=== PATIENT | female | born 1945 | race African-American/Black ===

== ENCOUNTER 2017-05-22 12:01 | Observation (INO) ==
[2017-05-22] MEDS ORDERED: Ondansetron 4 MG/2 ML VIAL IVP PRN (14:08)
[2017-05-22] MEDS ORDERED: *HR* Morphine 2 MG/ML SYRINGE IVP PRN (14:08)
[2017-05-22] MEDS ORDERED: Naloxone 0.4 MG/ML INJ IVP PRN (14:08)
[2017-05-22] MEDS ORDERED: *HR* LORazepam 2 MG/ML VIAL IVP PRN ×3 (14:31)
--- NOTE | 2017-05-22 14:45 | Internal Med History&Physical ---
<Charanjit Worrell J - Last Filed: 05/22/17 18:50> Date of Encounter: 05/22/17 Time of Encounter: 14:39 Assessment and Plan (1) Fracture of right hip requiring operative repair Current visit: Yes Status: Acute Rt periprosthetic fracture, s/p fall, alcohol may be a factor in fall. Planning surgical intervention in AM. Manage pain with morphine 2mg IVP Q4hr for pain, consider adding additional medication of pain remains uncontrolled. Qualifiers: Encounter type: initial encounter Fracture type: closed Qualified Code(s) : S72.001A - Fracture of unspecified part of neck of right femur, initial encounter for closed fracture (2) Acute right hip pain Current visit: Yes Status: Acute S/p fall resulting in fracture of prosthetic. pain 2/10 with rest, and 10/10 with ROM and movement. Start Morphine 2mg Q4hr PRN for moderate to severe pain. (3) Alcohol abuse Current visit: Yes Status: Chronic Admits to drinking 0.5 a fifth of Vodka daily. Was drinking morning before event. Ordered blood ETOH, will start CIWA protocol in case of withdrawal, starting B12, thiamine, and folate (4) DVT prophylaxis Current visit: Yes Status: Acute s/p fall resulting in hip fracture. Fell and his head without LOC, will hold SC lovenox until results of CT head. Internal Medicine - H&P: HPI Chief complaint: Fracture of Rt hip s/p fall at home Admitted From: Home Plans for Post Hospital Care: Transfer Inp Rehab Fac History of present illness: Ms. Sparks is a 71 year old female with PMH of Gerd, HTN, and HLD who is a transfer from [facility] with Rt hip pain and fracture of Rt hip prosthesis s/p fall at home. She reports to also hitting her head without LOC, not on any blood thinners. All information obtained from chart review and patient report. She reports that she was coming down the steps and attempted to turn and lost her balance resulting in a fall on her right hip. Hip XR shows non-displaced periprosthetic fracture which was also confirmed via CT. She does admit to severe alcohol abuse drinking 0.5 a fifth of Vodka per day and was drinking this morning. She is being admitted for pain management, monitoring and surgical intervention in the morning. Past Med Surg Social Fam HX - Past Medical History Medical history: GERD, hyperlipidemia, hypertension, other Psychiatric history: anxiety, depression - Past Surgical History Surgical History: hip replacement (B/L) - Social History Smoking Status: Never smoker Smokeless Tobacco Status: No Alcohol use: heavy, recent Drug use: none - Family History Brother Adopted: No Living Status: Still Living Hx Family Cardiac Disorders: Yes Hx Family Respiratory Disorders: No Hx Family Cancer: No Hx Family GI Disorders: No Hx Family Endocrine Disorder: No Hx Family Neuromuscular Disorders: No Hx Family Neurologic Disorders: No Hx Family HEENT Disorders: No Hx Family Autoimmune Disorders: No Internal Medicine - H&P: Meds Allopurinol [Zyloprim 300 MG] 300 mg PO DAILY 09/30/15 [History] Atenolol [Tenormin] 50 mg PO DAILY 09/30/15 [History] Citalopram Hydrobromide [Celexa] 40 mg PO DAILY 09/30/15 [History] Gabapentin [Neurontin] 600 mg PO TID 09/30/15 [History] Magnesium Oxide [Magnesium] 400 mg PO DAILY 09/30/15 [History] Omeprazole [PriLOSEC] 40 mg PO BID 09/30/15 [History] Pravastatin Sodium [Pravachol] 40 mg PO HS 09/30/15 [History] Cholecalciferol (D-3) [Vitamin D] 1,000 unit PO DAILY 05/22/17 [History] Melatonin/Pyridoxine HCl (B6) [Melatonin 5 mg Tablet] 5 mg PO HS PRN 05/22/17 [ History] Mirtazapine [Remeron] 15 mg PO HS 05/22/17 [History] 3 Allergy/AdvReac Type Severity Reaction Status Date / Time No Known Allergies Allergy Verified 04/30/17 20:53 All Systems PM: A 10-system review of systems was performed and is negative for pertinent findings except as documented above in the HPI. - Constitutional Constitutional: no chills, no fever(s), no night sweats - EENT Eyes: no blurry vision, no change in vision, no discharge, no loss of vision, no pain, no photophobia Ears: no ear discharge, no ear pain, no tinnitus Nose, mouth and throat: no dysphagia, no nasal discharge, no neck pain, no sore throat - Cardiovascular Cardiovascular ROS IM: no chest pain, no diaphoresis, no dyspnea, no lightheadedness, no palpitations, no syncope - Respiratory Respiratory: no cough, no dyspnea, no wheezing, no excessive phlegm production - Gastrointestinal Gastrointestinal: no abdominal pain, no diarrhea, no hematemesis, no hematochezia, no melena, no nausea, no vomiting - Genitourinary Genitourinary: no change in urinary stream, no dysuria, no flank pain, no hematuria - Musculoskeletal Musculoskeletal ROS IM: as per HPI, arthralgias, limited range of motion, no numbness, no tingling Additional comments: Hip pain 2/10 with rest 10/10 with activity and/or ROM - Integumentary Integumentary IM: no rash, no unusual bruising - Neurological Neurological ROS: no confusion, no convulsions, no disequilibrium, no dizziness , no focal weakness, no frequent falls, no headache(s), no numbness, no tingling , no tremor(s), no vertigo - Hematologic/Lymphatic Hematologic/Lymphatic: no easy bruising - Constitutional Vitals: Temp Pulse Resp BP Pulse Ox 97.7 F 75 18 174/80 96 05/22/17 13:45 05/22/17 13:45 05/22/17 13:45 05/22/17 13:45 05/22/17 13:45 General appearance: Present: cooperative, mild distress, A&O X 3, answers questions appropriately - Head Head exam: Present: atraumatic, normocephalic - Eye Eye exam: Present: EOMI, PERRL, conjuntiva pink, sclera anicteric Pupils: Present: PERRL - Neck Neck exam general surgery: Present: supple, trachea midline. Absent: lymphadenopathy - Respiratory Respiratory exam: Present: CTAB. Absent: accessory muscle use, rales, rhonchi, wheezes - Cardiovascular Cardiovascular exam: Present: RRR, +S1, +S2. Absent: diastolic murmur, gallop, rubs, systolic murmur - GI/Abdominal GI/Abdominal exam: Present: normal bowel sounds, soft, no peritoneal signs. Absent: distended, tenderness - Extremities Exam Extremities exam: Present: warm, radial pulses palpable and symmetrical. Absent : calf tenderness, cyanotic, pedal edema - Expanded Lower Extremities Exam Hip exam: Present: tenderness. Absent: external rotation, internal rotation ( Rt periprosthetic hip fracture), swelling Upper Leg exam: Present: tenderness. Absent: abrasion, full ROM, swelling Knee exam: Present: tenderness. Absent: abrasion, full ROM, swelling - Neurological Exam Neurological exam: Present: alert, CN II-XII intact, oriented X3, no focal deficits. Absent: pronater drift, facial droop, speech deficit - Skin Skin exam: Present: dry, intact Internal Med - H&P Results - Diagnostic Studies Venous US Status: image reviewed by me Additional comments: Rt periprosthetic hip fracture <Ronel Brumfield - Last Filed: 05/23/17 17:58> Date of Encounter: 05/23/17 Internal Medicine - H&P: HPI History of present illness: Ms. Sparks is a 71 year old female All Systems PM: A 10-system review of systems was performed and is negative for pertinent findings except as documented above in the HPI. - Constitutional Vitals: Temp Pulse Resp BP Pulse Ox 98.2 F 81 18 142/81 95 05/23/17 14:25 05/23/17 14:25 05/23/17 14:25 05/23/17 14:25 05/23/17 14:25 Internal Med - H&P Results - Labs CBC & Chem 7: 05/23/17 04:16 05/23/17 04:16 Labs: Short CBC 05/23/17 Range/Units 04:16 WBC 10.3 (4.3-11.1) K/mcL Hgb 11.3 L D (11.5-15.4) g/dL Hct 34.6 L (35.3-44.9) % Plt Count 209 (140-400) K/mcL Neutrophils # 6.8 (1.6-8.9) K/mcL BMP 05/23/17 04:16 Sodium 136 Potassium 3.6 Chloride 102 Carbon Dioxide 24 BUN 14 Creatinine 1.07 Glucose 98 Calcium 8.4 L - Impressions ITS Impressions Head CT 05/22/17 14:29 IMPRESSION: No acute intracranial abnormality. D/ / César Hernandez MD / César Hernandez MD Interpreting Provider: César Hernandez MD - Attending Attestation I have personally performed a face to face evaluation on this patient and I discussed the assessment and plan with the nurse practitioner. I have reviewed and agree with the documented care plan. History and Exam by me shows: Ms. Sparks is a 71 year old female with PMH of Gerd, HTN, and HLD who is a transfer from [facility] with Rt hip pain and fracture of Rt hip prosthesis s/p fall at home. She reports to also hitting her head without LOC, not on any blood thinners. All information obtained from chart review and patient report. She reports that she was coming down the steps and attempted to turn and lost her balance resulting in a fall on her right hip. Hip XR shows non-displaced periprosthetic fracture which was also confirmed via CT. She does admit to severe alcohol abuse drinking 0.5 a fifth of Vodka per day and was drinking this morning. Gen: A, A, O X3 Chest : Diminished BS b/l, No crackles, no rales Hip: Point tenderness over Rt hip and mild swelling noticed a/p 1. Acute Rt hip prosthetic fx - non displaced Ortho consulted mostly conservative management 2. Chronic alcohol dependence on CIWA protocol
[2017-05-22] MEDS: Vitamin B Complex/Vit C/Vit E 1 EACH TABLET PO SCH (15:10)
[2017-05-22] MEDS: *HR* Morphine 2 MG/ML SYRINGE IVP PRN ×2 (15:10→23:47)
[2017-05-22] MEDS: Folic Acid 1 MG TABLET PO SCH (15:11)
[2017-05-22] MEDS: Thiamine (B-1) 100 MG TABLET PO SCH (15:11)
[2017-05-22] MEDS: 0.9 % Sodium Chloride 1,000 ML IVC SCH (15:11)
[2017-05-22 15:19] LABS: Amylase 47 Units/L (25-125); Ethanol < 10 mg/dL (0-10); Lipase 47 Units/L (8-78); Magnesium 1.1 mg/dL (1.6-2.6)
[2017-05-22 16:18] LABS: Amphetamine Screen,Urine Negative ng/mL (Cutoff=1000); Barbiturate Screen,Urine Negative ng/mL (Cutoff=200); Benzodiazepines Screen,Urine Negative ng/mL (Cutoff=200); Cannabinoid Screen,Urine Negative ng/mL (Cutoff = 50); Cocaine Screen,Urine Negative ng/mL (Cutoff= 300); Opiate Screen,Urine Positive ng/mL (Cutoff=300); Phencyclidine Screen,Urine Negative ng/mL (Cutoff=25)
--- NOTE | 2017-05-22 17:52 | Orthopedic Consult Note ---
Date of Encounter: 05/22/17 Time of Encounter: 17:47 History of Present Illness Chief complaint: Right hip pain HPI: Ms. Sparks is a 71 year old female who sustained an injury to her right hip when she fell on some stairs at her home. Patient states she was walking up stairs turned around and fell. She states that she normally uses a cane but did not have it with her. Patient does have a history of bilateral total hip arthroplasties performed in 1997. She has had no problems with the hips. Unfortunately the patient had x-rays taken and a CT scan performed at [facility] the revealed evidence of a periprosthetic fracture of the right hip. She was transferred to [facility] for definitive management. For complete history and physical data please refer the completed portion of the medical record Examination reveals no leg length inequalities. Pain is identified about the right hip. Distal neurosensory exam is intact. I reviewed x-rays of the right hip. The AP of the pelvis reveals bilateral press-fit total hip arthroplasty. There are no complicating features about the left hip. The right hip reveals a nondisplaced fracture in the peritrochanteric region. This is 50 cm below the greater trochanter and extends over to the region of the lesser trochanter. The prosthesis appears well seated. There is no evidence of dislocation. A CT scan of the hip is also reviewed. This reveals the same findings. There is a stable reduced total hip arthroplasty prosthesis within essence a nondisplaced fracture across the subtrochanteric region of the right hip. This is a somewhat angular fracture. The prosthesis remains well seated. There is some normal distal remodeling. No evidence of periprosthetic loosening. Impression: Periprosthetic fracture right proximal femur Recommendation: This is a stable fracture and does not require surgical intervention. The implant appears to be well fixed evidence of loosening. The fracture is nondisplaced and should heal with the femoral stem acting as an internal fixation device. The patient can begin touchdown weightbearing ambulation with a walker. Agree with DVT prophylaxis. Pain management. micrographics services supervisor for discharge planning. Thank you very much for allowing me to see and care for Mrs. Sparks. Sincerely, Lukas Lopez,DO Past Med Surg Social Fam HX - Past Medical History Medical history: GERD, hyperlipidemia, hypertension, other Psychiatric history: anxiety, depression - Past Surgical History Surgical History: hip replacement (B/L) - Social History Smoking Status: Never smoker Smokeless Tobacco Status: No Alcohol use: heavy, recent Drug use: none - Family History Brother Adopted: No Living Status: Still Living Hx Family Cardiac Disorders: Yes Hx Family Respiratory Disorders: No Hx Family Cancer: No Hx Family GI Disorders: No Hx Family Endocrine Disorder: No Hx Family Neuromuscular Disorders: No Hx Family Neurologic Disorders: No Hx Family HEENT Disorders: No Hx Family Autoimmune Disorders: No Medications and Allergies Allopurinol [Zyloprim 300 MG] 300 mg PO DAILY 09/30/15 [History] Atenolol [Tenormin] 50 mg PO DAILY 09/30/15 [History] Citalopram Hydrobromide [Celexa] 40 mg PO DAILY 09/30/15 [History] Gabapentin [Neurontin] 600 mg PO TID 09/30/15 [History] Magnesium Oxide [Magnesium] 400 mg PO DAILY 09/30/15 [History] Omeprazole [PriLOSEC] 40 mg PO BID 09/30/15 [History] Pravastatin Sodium [Pravachol] 40 mg PO HS 09/30/15 [History] Cholecalciferol (D-3) [Vitamin D] 1,000 unit PO DAILY 05/22/17 [History] Melatonin/Pyridoxine HCl (B6) [Melatonin 5 mg Tablet] 5 mg PO HS PRN 05/22/17 [ History] Mirtazapine [Remeron] 15 mg PO HS 05/22/17 [History] 3 Allergy/AdvReac Type Severity Reaction Status Date / Time No Known Allergies Allergy Verified 04/30/17 20:53 All Systems Reviewed: A 10-system review of systems was performed and is negative for pertinent findings except as documented above in the HPI. Physical Exam - Constitutional Vitals: Temp Pulse Resp BP Pulse Ox 97.7 F 75 18 174/80 96 05/22/17 13:45 05/22/17 13:45 05/22/17 13:45 05/22/17 13:45 05/22/17 13:45 Results - Labs Labs: Abnormal lab results Magnesium 1.1 mg/dL (1.6-2.6) L 05/22/17 14:36 Urine Opiates Screen Positive ng/mL (Xpqhwn=192) H 05/22/17 15:40 All other labs normal. - Diagnostic results Hip AP/Lateral x-ray: image reviewed Hip CT: image reviewed Consult Discharge Plan - Plan Referrals: Adri Downing, KATHRYN [Primary Care Provider] -
[2017-05-22] MEDS ORDERED: PYRIDOXINE HCL PO PRN (17:54)
[2017-05-22] MEDS ORDERED: MELATONIN PO PRN (17:54)
[2017-05-22] MEDS ORDERED: Magnesium Sulfate 2 GM in D5% in Water 100 ML IVPB ONE (20:07)
[2017-05-22] MEDS: Mirtazapine 15 MG TABLET PO SCH (20:41)
[2017-05-22] MEDS: Gabapentin 300 MG CAPSULE PO SCH ×2 (20:41→20:52)
[2017-05-23] MEDS: 0.9 % Sodium Chloride 1,000 ML IVC SCH ×2 (02:22→12:45)
[2017-05-23 05:18] LABS: Basophils # 0.1 K/mcL (0.0-0.2); Basophils % 0.5 %; Eosinophils # 0.2 K/mcL (0.0-0.6); Eosinophils % 1.5 %; Hematocrit 34.6 % (35.3-44.9); Hemoglobin 11.3 g/dL (11.5-15.4); Immature Granulocytes % 0.9 % (0-4); Lymphocytes # 2.5 K/mcL (0.6-4.6); Lymphocytes % 24.2 %; Mean Corpuscular HGB Conc 32.7 g/dL (31.6-35.5); Mean Corpuscular Hemoglobin 34.2 pg (28.0-33.3); Mean Corpuscular Volume 104.8 fL (83.0-100.0); Mean Platelet Volume 10.4 fL (9.4-12.4); Monocytes # 0.7 K/mcL (0.0-1.3); Monocytes % 6.9 %; Neutrophils # 6.8 K/mcL (1.6-8.9); Platelet Count 209 K/mcL (140-400); Red Cell Distribution Width 13.3 % (11.5-14.5)
[2017-05-23 05:40] LABS: BUN/Creatinine Ratio 13 (6-26); Blood Urea Nitrogen 14 mg/dL (7-20); Calcium 8.4 mg/dL (8.6-10.8); Carbon Dioxide 24 mEq/L (19-29); Chloride 102 mEq/L (98-109); Glucose 98 mg/dL (70-99); Osmolality,Calculated 282 (280-300); Potassium 3.6 mEq/L (3.5-4.5); Sodium 136 mEq/L (136-145); eGFR For African Americans > 60 (> 60); eGFR For Non-African Americans 51 (> 60)
[2017-05-23] MEDS: *HR* Enoxaparin 40 MG/0.4 ML SYRINGE SQ SCH (05:51)
[2017-05-23] MEDS ORDERED: *HR* Enoxaparin 40 MG/0.4 ML SYRINGE SQ SCH (06:00)
[2017-05-23] MEDS: *HR* Morphine 2 MG/ML SYRINGE IVP PRN ×2 (06:52→16:52)
[2017-05-23] MEDS: Thiamine (B-1) 100 MG TABLET PO SCH (08:01)
[2017-05-23] MEDS: Gabapentin 300 MG CAPSULE PO SCH ×3 (08:01→20:29)
[2017-05-23] MEDS: Vitamin B Complex/Vit C/Vit E 1 EACH TABLET PO SCH (08:01)
[2017-05-23] MEDS: Cholecalciferol (D-3) 1,000 UNIT TABLET PO SCH (08:01)
[2017-05-23] MEDS: Folic Acid 1 MG TABLET PO SCH (08:02)
[2017-05-23] MEDS: Magnesium Oxide 400 MG TABLET PO SCH (08:02)
[2017-05-23] MEDS: traMADol 50 MG TABLET PO PRN ×2 (10:34→20:29)
--- NOTE | 2017-05-23 16:48 | Internal Med Progress Note ---
Date of Encounter: 05/23/17 Time of Encounter: 10:10 - Assessment and plan (1) Periprosthetic fracture of proximal end of femur Current Visit: Yes Status: Acute Assessment and plan: Patient has been evaluated by orthopedics. Fracture is stable and nonsurgical. Recommend touchdown weight bearing ambulation with a walker. Physical therapy consulted. order worker consulted for discharge planning. Continue current pain management and DVT prophylaxis. (2) Acute right hip pain Current Visit: Yes Status: Acute Assessment and plan: Improved today. We will add oral medications to control pain better. (3) Alcohol abuse Current Visit: Yes Status: Chronic Assessment and plan: Monitoring for withdrawal. No signs of withdrawal at this time. (4) DVT prophylaxis Current Visit: Yes Status: Acute Assessment and plan: With subcutaneous Lovenox - Subjective Interval history: Patient sitting up in chair. Appears comfortable. Pain is well controlled. Denies any new complaints at this time. Has good range of motion at knee and ankle. - Constitutional Vitals: Temp Pulse Resp BP Pulse Ox 98.2 F 81 18 142/81 95 05/23/17 14:25 05/23/17 14:25 05/23/17 14:25 05/23/17 14:25 05/23/17 14:25 General appearance: Present: cooperative, A&O X 3, no acute distress, answers questions appropriately - Neck Neck exam general surgery: Present: supple, trachea midline. Absent: lymphadenopathy - Respiratory Respiratory exam: Present: CTAB. Absent: accessory muscle use, rales, rhonchi, wheezes - Cardiovascular Cardiovascular exam: Present: RRR, +S1, +S2. Absent: diastolic murmur, gallop, rubs, systolic murmur - Extremities Exam Extremities exam: Present: tenderness (Right hip region), warm, radial pulses palpable and symmetrical. Absent: calf tenderness, cyanotic, pedal edema - Neurological Exam Neurological exam: Present: alert, oriented X3, no focal deficits. Absent: facial droop, speech deficit Internal Medicine: Result - Labs CBC & Chem 7: 05/23/17 04:16 05/23/17 04:16 Labs: Short CBC 05/23/17 Range/Units 04:16 WBC 10.3 (4.3-11.1) K/mcL Hgb 11.3 L D (11.5-15.4) g/dL Hct 34.6 L (35.3-44.9) % Plt Count 209 (140-400) K/mcL Neutrophils # 6.8 (1.6-8.9) K/mcL BMP 05/23/17 04:16 Sodium 136 Potassium 3.6 Chloride 102 Carbon Dioxide 24 BUN 14 Creatinine 1.07 Glucose 98 Calcium 8.4 L - Impressions Impressions Head CT 05/22/17 14:29 IMPRESSION: No acute intracranial abnormality. D/ / César Hernandez MD / César Hernandez MD Interpreting Provider: César Hernandez MD - VTE Documentation of Mechanical Device: Intermittent pneumatic compression device Consult Discharge Plan - Plan Referrals: Adri Downing, CHEMICAL PROCESSING EQUIPMENT REPAIRER [Primary Care Provider] -
[2017-05-23] MEDS: Mirtazapine 15 MG TABLET PO SCH (20:29)
[2017-05-24] MEDS: *HR* Morphine 2 MG/ML SYRINGE IVP PRN (01:01)
[2017-05-24] MEDS: *HR* Enoxaparin 40 MG/0.4 ML SYRINGE SQ SCH (06:15)
[2017-05-24] MEDS: Magnesium Oxide 400 MG TABLET PO SCH (07:42)
[2017-05-24] MEDS: Vitamin B Complex/Vit C/Vit E 1 EACH TABLET PO SCH (07:42)
[2017-05-24] MEDS: Thiamine (B-1) 100 MG TABLET PO SCH (07:42)
[2017-05-24] MEDS: Gabapentin 300 MG CAPSULE PO SCH ×3 (07:42→20:43)
[2017-05-24] MEDS: Cholecalciferol (D-3) 1,000 UNIT TABLET PO SCH (07:42)
[2017-05-24] MEDS: Folic Acid 1 MG TABLET PO SCH (07:42)
[2017-05-24] MEDS: traMADol 50 MG TABLET PO PRN (12:50)
--- NOTE | 2017-05-24 16:43 | Internal Med Progress Note ---
Date of Encounter: 05/24/17 Time of Encounter: 16:41 - Assessment and plan (1) Periprosthetic fracture of proximal end of femur Current Visit: Yes Status: Acute Assessment and plan: hx right hip fractre with harware in palce. S/p fall on day of presentation. Right hip x-ray with non-displaced periprosthetic fractur. Evaluated by Ortho who noted fracture is stable and nonsurgical. Recommend touchdown weight bearing ambulation with a walker. PT recommending SNF. Plan to discharge to [place] inpatient rehabilitation when able. Continue current pain management and DVT prophylaxis. (2) Hypertension Current Visit: Yes Status: Acute Assessment and plan: per hx. repeat uncontrolled on home medication regimen. Adding amlodipine. Monitor BP and titrate PRN Qualifiers: Hypertension type: essential hypertension Qualified Code(s): I10 - Essential (primary) hypertension (3) Alcohol abuse Current Visit: Yes Status: Chronic Assessment and plan: drinks most days when shes able to. Last drink morning of presentation. Denies previous history of withdrawal. Cont monitoring for withdrawal. No signs of withdrawal at this time. (4) DVT prophylaxis Current Visit: Yes Status: Acute Assessment and plan: With subcutaneous Lovenox - Subjective Interval history: Seen and examined at bedside, she is sitting up in chair at bedside. Says she feels fine. She actually has no complaints. No evidence of withdrawal, denies chest pain, no shortness of breath. Discussed with RN who reports patient complained of pain however she is not using tramadol. Patient encouraged to use tramadol - Constitutional Vitals: Temp Pulse Resp BP Pulse Ox 97.6 F 70 18 184/84 93 05/24/17 15:34 05/24/17 15:34 05/24/17 15:34 05/24/17 15:34 05/24/17 15:34 General appearance: Present: cooperative, A&O X 3, no acute distress, answers questions appropriately - Head Head exam: Present: atraumatic, normocephalic - Eye Eye exam: Present: PERRL, conjuntiva pink, sclera anicteric Pupils: Present: PERRL - Neck Neck exam general surgery: Present: supple, trachea midline. Absent: lymphadenopathy - Respiratory Respiratory exam: Present: CTAB. Absent: accessory muscle use, rales, rhonchi, wheezes - Cardiovascular Cardiovascular exam: Present: RRR, +S1, +S2. Absent: diastolic murmur, gallop, rubs, systolic murmur - GI/Abdominal GI/Abdominal exam: Present: normal bowel sounds, soft, no peritoneal signs. Absent: distended, tenderness - Extremities Exam Extremities exam: Present: warm, radial pulses palpable and symmetrical. Absent : calf tenderness, cyanotic, pedal edema - Neurological Exam Neurological exam: Present: CN II-XII intact, oriented X3, no focal deficits. Absent: pronater drift, facial droop, speech deficit - Skin Skin exam: Present: dry, intact Internal Medicine: Result - Labs CBC & Chem 7: 05/23/17 04:16 05/23/17 04:16 - VTE Documentation of Mechanical Device: Intermittent pneumatic compression device Consult Discharge Plan - Plan Referrals: Adri Downing, QUILTING MACHINE OPERATOR [Primary Care Provider] -
[2017-05-24] MEDS ORDERED: Ipratropium/Albuterol Neb 3 ML IH ONE (17:46)
[2017-05-24] MEDS: amLODIPine 5 MG TABLET PO SCH (18:19)
[2017-05-24] MEDS: Mirtazapine 15 MG TABLET PO SCH (20:43)
[2017-05-25 06:13] LABS: Hematocrit 33.7 % (35.3-44.9); Hemoglobin 10.9 g/dL (11.5-15.4); Mean Corpuscular HGB Conc 32.3 g/dL (31.6-35.5); Mean Corpuscular Volume 108.4 fL (83.0-100.0); Mean Platelet Volume 10.4 fL (9.4-12.4); Platelet Count 174 K/mcL (140-400); Red Blood Count 3.11 M/mcL (3.82-4.97); Red Cell Distribution Width 13.5 % (11.5-14.5)
[2017-05-25] MEDS: *HR* Enoxaparin 40 MG/0.4 ML SYRINGE SQ SCH (06:17)
[2017-05-25 06:25] LABS: Alanine Aminotransferase 29 Units/L (0-55); Albumin 2.7 g/dL (3.5-5.0); Albumin/Globulin Ratio 0.8 (1.1-2.2); Alkaline Phosphatase 77 Units/L (38-126); Aspartate Amino Transferase 22 Units/L (5-34); BUN/Creatinine Ratio 13 (6-26); Bilirubin,Total 0.5 mg/dL (0.2-1.2); Blood Urea Nitrogen 12 mg/dL (7-20); Calcium 8.4 mg/dL (8.6-10.8); Carbon Dioxide 24 mEq/L (19-29); Chloride 106 mEq/L (98-109); Globulin 3.5 g/dL (2.4-3.5); Glucose 134 mg/dL (70-99); Osmolality,Calculated 286 (280-300); Potassium 3.5 mEq/L (3.5-4.5); Sodium 137 mEq/L (136-145); Total Protein 6.2 g/dL (6.0-8.3); eGFR For African Americans > 60 (> 60); eGFR For Non-African Americans > 60 (> 60)
[2017-05-25] MEDS: traMADol 50 MG TABLET PO PRN ×2 (09:54→14:48)
[2017-05-25] MEDS: Thiamine (B-1) 100 MG TABLET PO SCH (09:54)
[2017-05-25] MEDS: Vitamin B Complex/Vit C/Vit E 1 EACH TABLET PO SCH (09:55)
[2017-05-25] MEDS: Folic Acid 1 MG TABLET PO SCH (09:55)
[2017-05-25] MEDS: amLODIPine 5 MG TABLET PO SCH (09:55)
[2017-05-25] MEDS: Cholecalciferol (D-3) 1,000 UNIT TABLET PO SCH (09:55)
[2017-05-25] MEDS: Magnesium Oxide 400 MG TABLET PO SCH (09:55)
[2017-05-25] MEDS: Gabapentin 300 MG CAPSULE PO SCH ×3 (09:55→20:36)
--- NOTE | 2017-05-25 17:05 | Internal Med Progress Note ---
Date of Encounter: 05/25/17 Time of Encounter: 17:03 - Assessment and plan (1) Periprosthetic fracture of proximal end of femur Current Visit: Yes Status: Acute Assessment and plan: hx right hip fractre with hardware in place. S/p fall on day of presentation. Right hip x-ray with non-displaced periprosthetic fractur. Evaluated by Ortho who noted fracture is stable and nonsurgical. Recommend touchdown weight bearing ambulation with a walker. PT recommending SNF. Plan to discharge to [place] inpatient rehabilitation when able. Continue current pain management and DVT prophylaxis. (2) Hypertension Current Visit: Yes Status: Acute Assessment and plan: per hx. repeat uncontrolled on home medication regimen. Adding amlodipine. Monitor BP and titrate PRN. BP improved on 05/25/17 Qualifiers: Hypertension type: essential hypertension Qualified Code(s): I10 - Essential (primary) hypertension (3) Alcohol abuse Current Visit: Yes Status: Chronic Assessment and plan: drinks most days when shes able to. Last drink morning of presentation. Denies previous history of withdrawal. Cont monitoring for withdrawal. No signs of withdrawal at this time. (4) DVT prophylaxis Current Visit: Yes Status: Acute Assessment and plan: With subcutaneous Lovenox - Subjective Interval history: Seen and examined at bedside, says she feels fine. Has some pain in right hip with walking and after PT, otherwise she has no complaints. - Constitutional Vitals: Temp Pulse Resp BP Pulse Ox 98.1 F 77 18 124/77 93 05/25/17 15:16 05/25/17 15:16 05/25/17 15:16 05/25/17 15:16 05/25/17 15:16 General appearance: Present: cooperative, A&O X 3, no acute distress, answers questions appropriately - Head Head exam: Present: atraumatic, normocephalic - Eye Eye exam: Present: PERRL, conjuntiva pink, sclera anicteric Pupils: Present: PERRL - Neck Neck exam general surgery: Present: supple, trachea midline. Absent: lymphadenopathy - Respiratory Respiratory exam: Present: CTAB. Absent: accessory muscle use, rales, rhonchi, wheezes - Cardiovascular Cardiovascular exam: Present: RRR, +S1, +S2. Absent: diastolic murmur, gallop, rubs, systolic murmur - GI/Abdominal GI/Abdominal exam: Present: normal bowel sounds, soft, no peritoneal signs. Absent: distended, tenderness - Extremities Exam Extremities exam: Present: warm, radial pulses palpable and symmetrical. Absent : calf tenderness, cyanotic, pedal edema - Neurological Exam Neurological exam: Present: CN II-XII intact, oriented X3, no focal deficits. Absent: pronater drift, facial droop, speech deficit - Skin Skin exam: Present: dry, intact Internal Medicine: Result - Labs CBC & Chem 7: 05/25/17 05:15 05/25/17 05:15 Labs: Short CBC 05/25/17 Range/Units 05:15 WBC 13.6 H (4.3-11.1) K/mcL Hgb 10.9 L (11.5-15.4) g/dL Hct 33.7 L (35.3-44.9) % Plt Count 174 (140-400) K/mcL BMP 05/25/17 05:15 Sodium 137 Potassium 3.5 Chloride 106 Carbon Dioxide 24 BUN 12 Creatinine 0.91 Glucose 134 H Calcium 8.4 L Liver Function 05/25/17 Range/Units 05:15 Total Bilirubin 0.5 (0.2-1.2) mg/dL AST 22 (5-34) Units/L ALT 29 (0-55) Units/L Alkaline Phosphatase 77 (38-126) Units/L Albumin 2.7 L (3.5-5.0) g/dL - VTE Documentation of Mechanical Device: Intermittent pneumatic compression device Consult Discharge Plan - Plan Referrals: Adri Downing, CAREER COUNSELOR [Primary Care Provider] -
[2017-05-25] MEDS: Mirtazapine 15 MG TABLET PO SCH (20:37)
[2017-05-25] MEDS: *HR* Morphine 2 MG/ML SYRINGE IVP PRN (20:37)
[2017-05-26] MEDS: *HR* Morphine 2 MG/ML SYRINGE IVP PRN (03:40)
[2017-05-26 05:07] LABS: Hematocrit 32.1 % (35.3-44.9); Hemoglobin 10.6 g/dL (11.5-15.4); Mean Corpuscular Hemoglobin 35.6 pg (28.0-33.3); Mean Corpuscular Volume 107.7 fL (83.0-100.0); Mean Platelet Volume 10.4 fL (9.4-12.4); Platelet Count 179 K/mcL (140-400); Red Blood Count 2.98 M/mcL (3.82-4.97); Red Cell Distribution Width 13.7 % (11.5-14.5)
[2017-05-26 05:23] LABS: Alanine Aminotransferase 26 Units/L (0-55); Albumin 2.7 g/dL (3.5-5.0); Albumin/Globulin Ratio 0.8 (1.1-2.2); Alkaline Phosphatase 76 Units/L (38-126); Aspartate Amino Transferase 19 Units/L (5-34); BUN/Creatinine Ratio 11 (6-26); Bilirubin,Total 0.4 mg/dL (0.2-1.2); Blood Urea Nitrogen 9 mg/dL (7-20); Calcium 8.8 mg/dL (8.6-10.8); Carbon Dioxide 20 mEq/L (19-29); Chloride 108 mEq/L (98-109); Globulin 3.5 g/dL (2.4-3.5); Glucose 127 mg/dL (70-99); Osmolality,Calculated 284 (280-300); Potassium 3.6 mEq/L (3.5-4.5); Sodium 137 mEq/L (136-145); Total Protein 6.2 g/dL (6.0-8.3); eGFR For African Americans > 60 (> 60); eGFR For Non-African Americans > 60 (> 60)
[2017-05-26] MEDS: *HR* Enoxaparin 40 MG/0.4 ML SYRINGE SQ SCH (06:19)
[2017-05-26] MEDS: Gabapentin 300 MG CAPSULE PO SCH ×2 (08:27→15:35)
[2017-05-26] MEDS: Cholecalciferol (D-3) 1,000 UNIT TABLET PO SCH (08:27)
[2017-05-26] MEDS: Vitamin B Complex/Vit C/Vit E 1 EACH TABLET PO SCH (08:27)
[2017-05-26] MEDS: Magnesium Oxide 400 MG TABLET PO SCH (08:27)
[2017-05-26] MEDS: Thiamine (B-1) 100 MG TABLET PO SCH (08:27)
[2017-05-26] MEDS: amLODIPine 5 MG TABLET PO SCH (08:28)
[2017-05-26] MEDS: Folic Acid 1 MG TABLET PO SCH (08:28)
--- NOTE | 2017-05-26 12:26 | Discharge Summary ---
Date of Encounter: 05/26/17 Time of Encounter: 13:04 - Discharge Diagnosis (1) Periprosthetic fracture of proximal end of femur Priority: Primary Status: Acute Comments: 71 y/o female with PMH HTN and alcohol abuse who presented to [facility], [place] on 05/22/2017 with complaints of right hip pain after falling at home. She was found to have non-displaced periprosthetic fracture; she was evautaed by Ortho who felt non- surgical. She was evaluated by PT/OT who recommended SNF. She was discharged to [facility] inpatient [facility] for continued PT/OT 1. Bridget-prostatic fracture proximal end of femur: hx right hip fractre with hardware in place. S/p fall on day of presentation. Right hip x-ray with non- displaced periprosthetic fracture. Evaluated by Ortho who noted fracture is stable and nonsurgical. Evaluated by PT/OT who recommended SNF. Plan to discharge to [facility] inpatient rehabilitation once insurance approval obtained. Pain control with PRN OXyIR. Will need to follow-up with Ortho outpatient. 2. HTN: per hx. BP uncontrolled on home medication regimen; improved with amlodipine. BP can be monitored at inpatient rehabilitation. 3. COPD exacerbation: With diffuse wheezing on exam. No cough, no sputum production, afebrile, no elevated WBC. No indication for ATB. Steroid burst for 5 days, DuoNeb's. 4. EtOH abuse: drinks most days when shes able to. Last drink morning of presentation. Denies previous history of withdrawal. monitored with [facility] while inpatient; did not trigger scale and no signs or symptoms of alcohol withdrawal. Cessation advised. (2) Hypertension Priority: Primary Status: Acute Qualifiers: Hypertension type: essential hypertension Qualified Code(s): I10 - Essential (primary) hypertension (3) Alcohol abuse Priority: Primary Status: Acute - Discharge Medications Prescriptions: amLODIPine [Norvasc] 10 mg PO DAILY #30 tablet Oxycodone HCl [Oxaydo] 5 mg PO Q8H PRN #24 tablet.orl PRN Reason: Pain Home Medications: Allopurinol [Zyloprim 300 MG] 300 mg PO DAILY 09/30/15 [History] Atenolol [Tenormin] 50 mg PO DAILY 09/30/15 [History] Citalopram Hydrobromide [Celexa] 40 mg PO DAILY 09/30/15 [History] Gabapentin [Neurontin] 600 mg PO TID 09/30/15 [History] Magnesium Oxide [Magnesium] 400 mg PO DAILY 09/30/15 [History] Omeprazole [PriLOSEC] 40 mg PO BID 09/30/15 [History] Pravastatin Sodium [Pravachol] 40 mg PO HS 09/30/15 [History] Cholecalciferol (D-3) [Vitamin D] 1,000 unit PO DAILY 05/22/17 [History] Melatonin/Pyridoxine HCl (B6) [Melatonin 5 mg Tablet] 5 mg PO HS PRN 05/22/17 [ History] Mirtazapine [Remeron] 15 mg PO HS 05/22/17 [History] Ipratropium/Albuterol Neb [Duoneb] 3 ml IH [id number] inhsol 05/26/17 [Rx] Oxycodone HCl [Oxaydo] 5 mg PO Q8H PRN #24 tablet.orl 05/26/17 [Rx] amLODIPine [Norvasc] 10 mg PO DAILY #30 tablet 05/26/17 [Rx] predniSONE [PredniSONE] 40 mg PO DAILY 5 Days tablet 05/26/17 [Rx] Allergies/Adverse Reactions: 3 Allergy/AdvReac Type Severity Reaction Status Date / Time No Known Allergies Allergy Verified 04/30/17 20:53 Date of admission: 05/22/17 13:20 Primary care physician: Adri Downing CNP Consults: 05/22/17 14:31 Consult to Product Support Technician [CONS] Routine Reason for SW Consult: New Rt hip fracture, h/o alcohol abuse reports drinking 0.5 a fifth of Vodka daily. Will need Rehab center s/p hip sx. 05/23/17 07:43 Consult to Occupational Therapy [CONS] Routine Comment: Evaluate, develop and implement POC Reason for Consult: Right femure fracture Consult to Physical Therapy [CONS] Routine Comment: Evaluate, develop and implement POC Reason for Consult: Right femure fracture Discharging clinician: Lesli Helm Anticipated date of discharge: 05/26/17 - Patient Status Disposition: Transfer Inpatient Rehab Fac Condition: Good Functional capacity at discharge: uses cane/walker Overall status at discharge: patient is progressing back to baseline - Discharge Instructions Follow Up With: Downing,Adri L, [employer] [Primary Care Provider] - - Diet and Activity Activity: as per physical therapy Diet: advance to your usual diet Interval History: Seen and examined at bedside. She is complaining of wheezing. No cough, no sputum production. No fevers or chills. Says tramadol is not really helping with her right hip pain. Plan to DC to inpatient rehabilitation once insurance approval obtained Hospital course: See assessment and plan for hospital course - Time Spent with Patient Total time spent providing and/or coordinating discharge services: Greater than 30 minutes (42 minutes) - Constitutional Vitals: Temp Pulse Resp BP Pulse Ox 98.5 F 76 18 134/67 95 05/26/17 11:00 05/26/17 11:00 05/26/17 11:00 05/26/17 11:00 05/26/17 11:00 General appearance: Present: cooperative, A&O X 3, no acute distress, answers questions appropriately - Head Head exam: Present: atraumatic, normocephalic - Eye Eye exam: Present: PERRL, conjuntiva pink, sclera anicteric Pupils: Present: PERRL - Neck Neck exam general surgery: Present: supple, trachea midline. Absent: lymphadenopathy - Respiratory Respiratory exam: Present: wheezes. Absent: accessory muscle use, rales, rhonchi - Cardiovascular Cardiovascular exam: Present: RRR, +S1, +S2. Absent: diastolic murmur, gallop, rubs, systolic murmur - GI/Abdominal GI/Abdominal exam: Present: normal bowel sounds, soft, no peritoneal signs. Absent: distended, tenderness - Extremities Exam Extremities exam: Present: warm, radial pulses palpable and symmetrical. Absent : calf tenderness, cyanotic, pedal edema - Neurological Exam Neurological exam: Present: CN II-XII intact, oriented X3, no focal deficits. Absent: pronater drift, facial droop, speech deficit - Skin Skin exam: Present: dry, intact - VTE Documentation of Mechanical Device: Intermittent pneumatic compression device
[2017-05-26] MEDS ORDERED: predniSONE 20 MG TABLET PO SCH (12:45)
[2017-05-26] MEDS: *HR* OxyCODONE Immed Rel 5 MG TABLET PO PRN ×2 (12:57→17:56)
[2017-05-26 14:54] VITALS: BP 128/74
[2017-05-26] MEDS: Ipratropium/Albuterol Neb 3 ML IH SCH ×3 (15:53→19:27)
[2017-05-26] MEDS ORDERED: FLUARIX QUAD 2017-18 36MOS UP/PF 0.5 ML SYRINGE IM ONE (18:21)
== END 2017-05-26 18:25 ==
LOC: 3NENU
PROVIDERS: ADMIT Nurse Practitioner; ATTEND Internal Medicine

== ENCOUNTER 2020-03-05 01:16 | Observation (INO) ==
[2020-03-05] MEDS ORDERED: Naloxone 0.4 MG/ML INJ IVP PRN (02:23)
[2020-03-05] MEDS ORDERED: Acetaminophen 325 MG TABLET PO PRN ×2 (02:23→17:58)
[2020-03-05] MEDS ORDERED: 0.9 % Sodium Chloride 1,000 ML IVC SCH ×2 (02:30→14:30)
[2020-03-05] MEDS ORDERED: *HR* LORazepam 2 MG/ML VIAL IVP PRN ×3 (05:04)
[2020-03-05 05:46] LABS: Basophils % 0.1 %; Hematocrit 38.8 % (35.3-44.9); Hemoglobin 12.7 g/dL (11.5-15.4); Immature Granulocytes % 0.4 % (0-4); Lymphocytes # 0.9 K/mcL (0.6-4.6); Lymphocytes % 7.6 %; Mean Corpuscular HGB Conc 32.7 g/dL (31.6-35.5); Mean Corpuscular Hemoglobin 34.1 pg (28.0-33.3); Mean Corpuscular Volume 104.3 fL (83.0-100.0); Mean Platelet Volume 9.9 fL (9.4-12.4); Monocytes # 0.8 K/mcL (0.0-1.3); Monocytes % 7.1 %; Neutrophils # 9.4 K/mcL (1.6-8.9); Platelet Count 190 K/mcL (140-400); Red Blood Count 3.72 M/mcL (3.82-4.97); Red Cell Distribution Width 13.1 % (11.5-14.5); Segmented Neutrophils % 84.8 %; White Blood Count 11.1 K/mcL (4.3-11.1)
[2020-03-05] MEDS: *HR* Heparin 5,000 UNIT/ML VIAL SQ SCH ×3 (05:47→20:12)
[2020-03-05] MEDS: MetroNIDAZOLE 500 MG/100 ML 500 MG/100 ML BAG IVPB SCH ×3 (06:50→20:13)
[2020-03-05 07:20] LABS: Albumin 3.6 g/dL (3.5-5.7); Albumin/Globulin Ratio 1.2 (1.1-2.2); Bilirubin,Total 0.8 mg/dL (0.3-1.0); Calcium 8.7 mg/dL (8.6-10.3); Globulin 3.1 g/dL (2.4-3.5); Potassium 3.5 mEq/L (3.5-5.1); Total Protein 6.7 g/dL (6.4-8.9)
[2020-03-05] MEDS: Thiamine (B-1) 100 MG, Folic Acid 1 MG, MVI, adult with vitamin K 10 ML in 0.9 % Sodi... IVPB SCH (17:21)
[2020-03-05] MEDS: allopurinoL 300 MG TABLET PO SCH (18:24)
[2020-03-05] MEDS: *HR* HYDROcodone/Acet 7.5/325 mg TABLET PO PRN (18:25)
[2020-03-05] MEDS: Gabapentin 300 MG CAPSULE PO SCH (20:09)
[2020-03-05] MEDS: traZODone 50 MG TABLET PO PRN (23:48)
[2020-03-06 04:16] LABS: Basophils % 0.2 %; Hematocrit 36.8 % (35.3-44.9); Hemoglobin 11.7 g/dL (11.5-15.4); Immature Granulocytes % 0.8 % (0-4); Lymphocytes # 1.1 K/mcL (0.6-4.6); Lymphocytes % 12.1 %; Mean Corpuscular HGB Conc 31.8 g/dL (31.6-35.5); Mean Corpuscular Volume 103.7 fL (83.0-100.0); Mean Platelet Volume 9.8 fL (9.4-12.4); Monocytes # 0.6 K/mcL (0.0-1.3); Monocytes % 6.8 %; Neutrophils # 7.2 K/mcL (1.6-8.9); Platelet Count 178 K/mcL (140-400); Red Blood Count 3.55 M/mcL (3.82-4.97); Red Cell Distribution Width 13.1 % (11.5-14.5); Segmented Neutrophils % 80.1 %; White Blood Count 8.9 K/mcL (4.3-11.1)
[2020-03-06 04:34] LABS: BUN/Creatinine Ratio 11 (6-26); Blood Urea Nitrogen 11 mg/dL (8-23); Calcium 7.8 mg/dL (8.6-10.3); Carbon Dioxide 24 mEq/L (23-29); Chloride 109 mEq/L (98-107); Glucose 86 mg/dL (70-105); Osmolality,Calculated 289 (280-300); Potassium 3.2 mEq/L (3.5-5.1); Sodium 140 mEq/L (136-145); eGFR For African Americans > 60 (> 60); eGFR For Non-African Americans 56 (> 60)
[2020-03-06] MEDS: *HR* HYDROcodone/Acet 7.5/325 mg TABLET PO PRN ×2 (04:42→16:01)
[2020-03-06] MEDS: *HR* Heparin 5,000 UNIT/ML VIAL SQ SCH ×3 (05:29→21:11)
[2020-03-06] MEDS: MetroNIDAZOLE 500 MG/100 ML 500 MG/100 ML BAG IVPB SCH ×3 (05:30→21:20)
[2020-03-06] MEDS: allopurinoL 300 MG TABLET PO SCH (08:37)
[2020-03-06] MEDS: Metoprolol XL (24 HR) Succ 50 MG TAB.ER.24H PO SCH (08:37)
[2020-03-06] MEDS: Gabapentin 300 MG CAPSULE PO SCH ×3 (08:37→21:11)
[2020-03-06] MEDS: Thiamine (B-1) 100 MG, Folic Acid 1 MG, MVI, adult with vitamin K 10 ML in 0.9 % Sodi... IVPB SCH (09:54)
[2020-03-06] MEDS ORDERED: Albuterol Neb 1.25 MG/3 ML VIAL IH ONE (21:49)
[2020-03-06] MEDS: traZODone 50 MG TABLET PO PRN (21:56)
[2020-03-07] MEDS: *HR* HYDROcodone/Acet 7.5/325 mg TABLET PO PRN ×2 (04:46→14:18)
[2020-03-07] MEDS: MetroNIDAZOLE 500 MG/100 ML 500 MG/100 ML BAG IVPB SCH (05:59)
[2020-03-07] MEDS: *HR* Heparin 5,000 UNIT/ML VIAL SQ SCH ×2 (06:00→12:19)
[2020-03-07 07:39] LABS: BUN/Creatinine Ratio 10 (6-26); Blood Urea Nitrogen 9 mg/dL (8-23); Calcium 8.6 mg/dL (8.6-10.3); Carbon Dioxide 24 mEq/L (23-29); Chloride 113 mEq/L (98-107); Glucose 105 mg/dL (70-105); Magnesium 1.4 mg/dL (1.6-2.6); Osmolality,Calculated 291 (280-300); Potassium 3.4 mEq/L (3.5-5.1); Sodium 141 mEq/L (136-145); eGFR For African Americans > 60 (> 60); eGFR For Non-African Americans > 60 (> 60)
[2020-03-07] MEDS: Gabapentin 300 MG CAPSULE PO SCH ×2 (09:07→15:27)
[2020-03-07] MEDS: allopurinoL 300 MG TABLET PO SCH (09:08)
[2020-03-07] MEDS: Metoprolol XL (24 HR) Succ 50 MG TAB.ER.24H PO SCH (09:08)
[2020-03-07] MEDS ORDERED: Ipratropium/Albuterol Neb 3 ML IH PRN (09:45)
[2020-03-07] MEDS: Thiamine (B-1) 100 MG, Folic Acid 1 MG, MVI, adult with vitamin K 10 ML in 0.9 % Sodi... IVPB SCH (12:19)
[2020-03-07] MEDS ORDERED: metroNIDAZOLE 500 MG TABLET PO SCH (14:00)
[2020-03-07 15:15] VITALS: BP 144/82
[2020-03-08] MEDS ORDERED: Thiamine (B-1) 100 MG TABLET PO SCH (09:00)
[2020-03-08] MEDS ORDERED: Folic Acid 1 MG TABLET PO SCH (09:00)
[2020-03-08] MEDS ORDERED: Multivit/Ca/Min/Fe/FA 1 TAB TABLET PO SCH (09:00)
== END 2020-03-07 16:58 | disposition home or self-care (01) ==
LOC: 3BNU → SUATTDRO 01:16
PROVIDERS: ADMIT Internal Medicine; ATTEND Internal Medicine

== ENCOUNTER 2020-03-12 18:13 | Observation (INO) ==
[2020-03-12] MEDS ORDERED: Naloxone 0.4 MG/ML INJ IVP PRN (20:57)
[2020-03-12] MEDS ORDERED: Ondansetron 4 MG/2 ML VIAL IVP PRN (20:57)
[2020-03-12] MEDS ORDERED: 0.9 % Sodium Chloride 1,000 ML IVC SCH (21:00)
[2020-03-12] MEDS: *HR* Heparin 5,000 UNIT/ML VIAL SQ SCH (23:04)
[2020-03-12 23:24] LABS: BUN/Creatinine Ratio 8 (6-26); Blood Urea Nitrogen 7 mg/dL (8-23); Calcium 8.8 mg/dL (8.6-10.3); Carbon Dioxide 24 mEq/L (23-29); Chloride 109 mEq/L (98-107); Glucose 92 mg/dL (70-105); Osmolality,Calculated 290 (280-300); Potassium 3.4 mEq/L (3.5-5.1); Sodium 141 mEq/L (136-145); eGFR For African Americans > 60 (> 60); eGFR For Non-African Americans > 60 (> 60)
[2020-03-13] MEDS: Piperacillin/Tazobactam 3.375 GM in 0.9 % Sodium Chloride Mini Bag 100 ML IVPB SCH ×3 (05:16→20:13)
[2020-03-13] MEDS: *HR* Heparin 5,000 UNIT/ML VIAL SQ SCH ×3 (05:17→20:14)
[2020-03-13 05:30] LABS: Basophils # 0.1 K/mcL (0.0-0.2); Basophils % 0.5 %; Eosinophils % 0.1 %; Hematocrit 34.8 % (35.3-44.9); Hemoglobin 11.2 g/dL (11.5-15.4); Immature Granulocytes % 1.7 % (0-4); Lymphocytes # 1.5 K/mcL (0.6-4.6); Lymphocytes % 15.2 %; Mean Corpuscular HGB Conc 32.2 g/dL (31.6-35.5); Mean Corpuscular Hemoglobin 33.2 pg (28.0-33.3); Mean Corpuscular Volume 103.3 fL (83.0-100.0); Monocytes # 0.8 K/mcL (0.0-1.3); Neutrophils # 7.2 K/mcL (1.6-8.9); Platelet Count 321 K/mcL (140-400); Red Blood Count 3.37 M/mcL (3.82-4.97); Red Cell Distribution Width 14.3 % (11.5-14.5); Segmented Neutrophils % 74.5 %; White Blood Count 9.6 K/mcL (4.3-11.1)
[2020-03-13 05:50] LABS: Alanine Aminotransferase 16 Units/L (7-52); Albumin 3.3 g/dL (3.5-5.7); Albumin/Globulin Ratio 1.3 (1.1-2.2); Alkaline Phosphatase 68 Units/L (34-104); Aspartate Amino Transferase 17 Units/L (13-39); BUN/Creatinine Ratio 9 (6-26); Bilirubin,Total 0.6 mg/dL (0.3-1.0); Blood Urea Nitrogen 7 mg/dL (8-23); Calcium 8.2 mg/dL (8.6-10.3); Carbon Dioxide 24 mEq/L (23-29); Chloride 110 mEq/L (98-107); Globulin 2.6 g/dL (2.4-3.5); Glucose 90 mg/dL (70-105); Osmolality,Calculated 290 (280-300); Potassium 3.2 mEq/L (3.5-5.1); Sodium 141 mEq/L (136-145); Total Protein 5.9 g/dL (6.4-8.9); eGFR For African Americans > 60 (> 60); eGFR For Non-African Americans > 60 (> 60)
[2020-03-13 06:17] LABS: Bilirubin,Urine Negative (Negative); Blood,Urine Negative (Negative); Clarity,Urine Clear (Clear); Color,Urine Yellow (Yellow); Glucose,Urine (UA) Normal (Normal); Ketones,Urine Negative (Negative); Leukocyte Esterase,Urine Trace (Negative); Nitrite,Urine Negative (Negative); PH,Urine 6.5 pH Units (5.0-8.0); Protein,Urine 30 mg/dL (Neg-Trace); Specific Gravity,Urine > 1.030 (1.010-1.025); Squamous Epithelial Cell,Urine Few per hpf (None-Few); Urobilinogen,Urine Normal (Normal)
[2020-03-13] MEDS: 0.9 % Sodium Chloride w KCl 40 MEQ/1,000 ML MLS IVC SCH ×2 (10:25→20:21)
[2020-03-13] MEDS: Metoprolol XL (24 HR) Succ 50 MG TAB.ER.24H PO SCH (10:27)
[2020-03-13] MEDS: Gabapentin 300 MG CAPSULE PO SCH ×3 (10:27→20:13)
[2020-03-14 03:05] LABS: Basophils % 0.4 %; Eosinophils % 0.1 %; Hematocrit 33.8 % (35.3-44.9); Hemoglobin 10.7 g/dL (11.5-15.4); Immature Granulocytes % 1.8 % (0-4); Lymphocytes % 25.5 %; Mean Corpuscular HGB Conc 31.7 g/dL (31.6-35.5); Mean Corpuscular Hemoglobin 33.3 pg (28.0-33.3); Mean Corpuscular Volume 105.3 fL (83.0-100.0); Mean Platelet Volume 9.8 fL (9.4-12.4); Monocytes # 0.7 K/mcL (0.0-1.3); Monocytes % 8.5 %; Neutrophils # 5.1 K/mcL (1.6-8.9); Platelet Count 304 K/mcL (140-400); Red Blood Count 3.21 M/mcL (3.82-4.97); Red Cell Distribution Width 14.5 % (11.5-14.5); Segmented Neutrophils % 63.7 %
[2020-03-14 03:21] LABS: BUN/Creatinine Ratio 10 (6-26); Blood Urea Nitrogen 8 mg/dL (8-23); Calcium 8.3 mg/dL (8.6-10.3); Carbon Dioxide 22 mEq/L (23-29); Chloride 115 mEq/L (98-107); Glucose 79 mg/dL (70-105); Magnesium 1.4 mg/dL (1.6-2.6); Osmolality,Calculated 291 (280-300); Potassium 3.9 mEq/L (3.5-5.1); Sodium 142 mEq/L (136-145); eGFR For African Americans > 60 (> 60); eGFR For Non-African Americans > 60 (> 60)
[2020-03-14] MEDS: Piperacillin/Tazobactam 3.375 GM in 0.9 % Sodium Chloride Mini Bag 100 ML IVPB SCH ×3 (03:41→18:49)
[2020-03-14] MEDS: *HR* Heparin 5,000 UNIT/ML VIAL SQ SCH ×3 (06:16→21:46)
[2020-03-14] MEDS: 0.9 % Sodium Chloride w KCl 40 MEQ/1,000 ML MLS IVC SCH (07:17)
[2020-03-14] MEDS: Gabapentin 300 MG CAPSULE PO SCH ×3 (08:47→21:45)
[2020-03-14] MEDS: Metoprolol XL (24 HR) Succ 50 MG TAB.ER.24H PO SCH (08:47)
[2020-03-14] MEDS ORDERED: Melatonin 3 MG TABLET PO ONE (22:28)
[2020-03-15] MEDS: Piperacillin/Tazobactam 3.375 GM in 0.9 % Sodium Chloride Mini Bag 100 ML IVPB SCH (02:54)
[2020-03-15] MEDS: *HR* Heparin 5,000 UNIT/ML VIAL SQ SCH (05:28)
[2020-03-15 08:03] VITALS: BP 124/74
[2020-03-15] MEDS: Gabapentin 300 MG CAPSULE PO SCH (09:50)
[2020-03-15] MEDS: Metoprolol XL (24 HR) Succ 50 MG TAB.ER.24H PO SCH (09:50)
[2020-03-15 10:13] LABS: Basophils % 0.4 %; Eosinophils % 0.1 %; Hematocrit 36.8 % (35.3-44.9); Hemoglobin 11.3 g/dL (11.5-15.4); Immature Granulocytes % 0.9 % (0-4); Lymphocytes # 2.1 K/mcL (0.6-4.6); Lymphocytes % 26.9 %; Mean Corpuscular HGB Conc 30.7 g/dL (31.6-35.5); Mean Corpuscular Hemoglobin 32.3 pg (28.0-33.3); Mean Corpuscular Volume 105.1 fL (83.0-100.0); Mean Platelet Volume 9.9 fL (9.4-12.4); Monocytes # 0.4 K/mcL (0.0-1.3); Monocytes % 5.5 %; Neutrophils # 5.2 K/mcL (1.6-8.9); Platelet Count 355 K/mcL (140-400); Red Cell Distribution Width 14.6 % (11.5-14.5); Segmented Neutrophils % 66.2 %; White Blood Count 7.8 K/mcL (4.3-11.1)
[2020-03-15 10:25] LABS: BUN/Creatinine Ratio 7 (6-26); Blood Urea Nitrogen 6 mg/dL (8-23); Calcium 8.8 mg/dL (8.6-10.3); Carbon Dioxide 22 mEq/L (23-29); Chloride 113 mEq/L (98-107); Glucose 136 mg/dL (70-105); Osmolality,Calculated 290 (280-300); Potassium 4.2 mEq/L (3.5-5.1); Sodium 140 mEq/L (136-145); eGFR For African Americans > 60 (> 60); eGFR For Non-African Americans > 60 (> 60)
== END 2020-03-15 11:49 | disposition home or self-care (01) | DRG 392 ==
LOC: 3ANU → SUATTDRO 20:04
PROVIDERS: ADMIT Internal Medicine; ATTEND Internal Medicine

== ENCOUNTER 2020-09-12 03:23 | Observation (INO) ==
[2020-09-12] MEDS ORDERED: Ondansetron 4 MG/2 ML VIAL IVP PRN (05:57)
[2020-09-12] MEDS ORDERED: Naloxone 0.4 MG/ML INJ IVP PRN (05:57)
[2020-09-12] MEDS ORDERED: *HR* LORazepam 2 MG/ML VIAL IVP PRN ×3 (05:59)
[2020-09-12 06:44] LABS: Basophils % 0.2 %; Eosinophils % 0.1 %; Hematocrit 39.1 % (35.3-44.9); Hemoglobin 13.3 g/dL (11.5-15.4); Immature Granulocytes % 0.5 % (0-4); Lymphocytes # 1.1 K/mcL (0.6-4.6); Lymphocytes % 11.2 %; Mean Corpuscular Hemoglobin 35.5 pg (28.0-33.3); Mean Corpuscular Volume 104.3 fL (83.0-100.0); Mean Platelet Volume 9.2 fL (9.4-12.4); Monocytes # 0.6 K/mcL (0.0-1.3); Monocytes % 5.9 %; Neutrophils # 8.4 K/mcL (1.6-8.9); Platelet Count 202 K/mcL (140-400); Red Blood Count 3.75 M/mcL (3.82-4.97); Red Cell Distribution Width 13.3 % (11.5-14.5); Segmented Neutrophils % 82.1 %; White Blood Count 10.2 K/mcL (4.3-11.1)
[2020-09-12 07:04] LABS: BUN/Creatinine Ratio 13 (6-26); Blood Urea Nitrogen 9 mg/dL (8-23); Calcium 8.8 mg/dL (8.6-10.3); Carbon Dioxide 27 mEq/L (23-29); Chloride 94 mEq/L (98-107); Glucose 113 mg/dL (70-105); Osmolality,Calculated 273 (280-300); Sodium 132 mEq/L (136-145); eGFR For African Americans > 60 (> 60); eGFR For Non-African Americans > 60 (> 60)
[2020-09-12 07:06] LABS: Chol/HDL Ratio 1.9 (0-4.9); Phosphorous 2.5 mg/dL (2.7-4.5)
[2020-09-12] MEDS: Folic Acid 1 MG TABLET PO SCH (08:52)
[2020-09-12] MEDS: Thiamine (B-1) 100 MG TABLET PO SCH (08:52)
[2020-09-12] MEDS: Metoprolol XL (24 HR) Succ 50 MG TAB.ER.24H PO SCH (17:47)
[2020-09-12] MEDS: *HR* Heparin 5,000 UNIT/ML VIAL SQ SCH ×2 (17:47→22:08)
[2020-09-12] MEDS: traZODone 50 MG TABLET PO SCH (19:47)
[2020-09-12] MEDS: Gabapentin 300 MG CAPSULE PO SCH (19:47)
[2020-09-13] MEDS: *HR* Heparin 5,000 UNIT/ML VIAL SQ SCH ×4 (05:55→22:16)
[2020-09-13] MEDS: Furosemide 20 MG TABLET PO SCH (10:21)
[2020-09-13] MEDS: Folic Acid 1 MG TABLET PO SCH (10:21)
[2020-09-13] MEDS: Multivit/Ca/Min/Fe/FA 1 TAB TABLET PO SCH (10:21)
[2020-09-13] MEDS: Metoprolol XL (24 HR) Succ 50 MG TAB.ER.24H PO SCH (10:21)
[2020-09-13] MEDS: Thiamine (B-1) 100 MG TABLET PO SCH (10:21)
[2020-09-13] MEDS: Gabapentin 300 MG CAPSULE PO SCH ×3 (10:22→19:34)
[2020-09-13] MEDS: allopurinoL 300 MG TABLET PO SCH (10:22)
[2020-09-13] MEDS: Cyanocobalamin (B-12) 1,000 MCG TABLET PO SCH (10:22)
[2020-09-13 11:23] LABS: Basophils % 0.3 %; Eosinophils % 0.3 %; Hematocrit 40.9 % (35.3-44.9); Hemoglobin 13.6 g/dL (11.5-15.4); Immature Granulocytes % 0.3 % (0-4); Lymphocytes # 0.8 K/mcL (0.6-4.6); Lymphocytes % 12.9 %; Mean Corpuscular HGB Conc 33.3 g/dL (31.6-35.5); Mean Corpuscular Hemoglobin 35.8 pg (28.0-33.3); Mean Corpuscular Volume 107.6 fL (83.0-100.0); Mean Platelet Volume 9.5 fL (9.4-12.4); Monocytes # 0.6 K/mcL (0.0-1.3); Monocytes % 10.2 %; Neutrophils # 4.7 K/mcL (1.6-8.9); Platelet Count 165 K/mcL (140-400); Red Cell Distribution Width 13.6 % (11.5-14.5); White Blood Count 6.2 K/mcL (4.3-11.1)
[2020-09-13 11:48] LABS: BUN/Creatinine Ratio 8 (6-26); Blood Urea Nitrogen 6 mg/dL (8-23); Calcium 9.3 mg/dL (8.6-10.3); Carbon Dioxide 31 mEq/L (23-29); Chloride 93 mEq/L (98-107); Glucose 163 mg/dL (70-105); Magnesium 1.8 mg/dL (1.6-2.6); Osmolality,Calculated 269 (280-300); Phosphorous < 1.0 mg/dL (2.7-4.5); Potassium 3.8 mEq/L (3.5-5.1); Sodium 129 mEq/L (136-145); eGFR For African Americans > 60 (> 60); eGFR For Non-African Americans > 60 (> 60)
[2020-09-13] MEDS ORDERED: Artificial Tears SOLN 15 ML BOTTLE BOTH EYES PRN (13:11)
[2020-09-13] MEDS: *HR* HYDROcodone/Acet 10/325 mg TABLET PO PRN (15:16)
[2020-09-13] MEDS: traZODone 50 MG TABLET PO SCH (19:34)
[2020-09-14] MEDS: *HR* Heparin 5,000 UNIT/ML VIAL SQ SCH ×3 (05:19→20:43)
[2020-09-14] MEDS: Metoprolol XL (24 HR) Succ 50 MG TAB.ER.24H PO SCH (05:20)
[2020-09-14 07:01] LABS: Basophils % 0.2 %; Eosinophils % 0.4 %; Hematocrit 37.4 % (35.3-44.9); Hemoglobin 12.2 g/dL (11.5-15.4); Immature Granulocytes % 0.4 % (0-4); Lymphocytes # 1.3 K/mcL (0.6-4.6); Lymphocytes % 25.9 %; Mean Corpuscular HGB Conc 32.6 g/dL (31.6-35.5); Mean Corpuscular Hemoglobin 35.6 pg (28.0-33.3); Mean Platelet Volume 9.8 fL (9.4-12.4); Monocytes # 0.6 K/mcL (0.0-1.3); Monocytes % 12.8 %; Platelet Count 142 K/mcL (140-400); Red Blood Count 3.43 M/mcL (3.82-4.97); Red Cell Distribution Width 13.3 % (11.5-14.5); Segmented Neutrophils % 60.3 %
[2020-09-14 07:22] LABS: BUN/Creatinine Ratio 16 (6-26); Blood Urea Nitrogen 10 mg/dL (8-23); Calcium 8.8 mg/dL (8.6-10.3); Carbon Dioxide 30 mEq/L (23-29); Chloride 98 mEq/L (98-107); Glucose 123 mg/dL (70-105); Magnesium 1.6 mg/dL (1.6-2.6); Osmolality,Calculated 276 (280-300); Phosphorous 1.8 mg/dL (2.7-4.5); Sodium 133 mEq/L (136-145); eGFR For African Americans > 60 (> 60); eGFR For Non-African Americans > 60 (> 60)
[2020-09-14] MEDS: Furosemide 20 MG TABLET PO SCH (08:33)
[2020-09-14] MEDS: Cyanocobalamin (B-12) 1,000 MCG TABLET PO SCH (08:33)
[2020-09-14] MEDS: Folic Acid 1 MG TABLET PO SCH (08:33)
[2020-09-14] MEDS: Multivit/Ca/Min/Fe/FA 1 TAB TABLET PO SCH (08:33)
[2020-09-14] MEDS: allopurinoL 300 MG TABLET PO SCH (08:33)
[2020-09-14] MEDS: Thiamine (B-1) 100 MG TABLET PO SCH (08:33)
[2020-09-14] MEDS: Gabapentin 300 MG CAPSULE PO SCH ×3 (08:33→20:43)
[2020-09-14] MEDS: *HR* HYDROcodone/Acet 10/325 mg TABLET PO PRN (15:42)
[2020-09-14] MEDS: traZODone 50 MG TABLET PO SCH (20:42)
[2020-09-14] MEDS ORDERED: Ipratropium/Albuterol Neb 3 ML IH PRN (21:24)
[2020-09-15 02:49] LABS: Basophils % 0.5 %; Eosinophils # 0.1 K/mcL (0.0-0.6); Eosinophils % 1.1 %; Hematocrit 39.4 % (35.3-44.9); Hemoglobin 12.8 g/dL (11.5-15.4); Immature Granulocytes % 0.7 % (0-4); Lymphocytes # 1.7 K/mcL (0.6-4.6); Lymphocytes % 22.7 %; Mean Corpuscular HGB Conc 32.5 g/dL (31.6-35.5); Mean Corpuscular Hemoglobin 35.7 pg (28.0-33.3); Mean Corpuscular Volume 109.7 fL (83.0-100.0); Mean Platelet Volume 9.6 fL (9.4-12.4); Monocytes # 0.9 K/mcL (0.0-1.3); Monocytes % 11.6 %; Neutrophils # 4.8 K/mcL (1.6-8.9); Platelet Count 142 K/mcL (140-400); Red Blood Count 3.59 M/mcL (3.82-4.97); Red Cell Distribution Width 13.3 % (11.5-14.5); Segmented Neutrophils % 63.4 %
[2020-09-15 02:50] LABS: White Blood Count 7.5 K/mcL (4.3-11.1)
[2020-09-15 03:07] LABS: BUN/Creatinine Ratio 20 (6-26); Blood Urea Nitrogen 14 mg/dL (8-23); Calcium 9.2 mg/dL (8.6-10.3); Carbon Dioxide 34 mEq/L (23-29); Chloride 98 mEq/L (98-107); Glucose 127 mg/dL (70-105); Osmolality,Calculated 282 (280-300); Phosphorous 1.3 mg/dL (2.7-4.5); Potassium 3.9 mEq/L (3.5-5.1); Sodium 135 mEq/L (136-145); eGFR For African Americans > 60 (> 60); eGFR For Non-African Americans > 60 (> 60)
[2020-09-15] MEDS: *HR* Heparin 5,000 UNIT/ML VIAL SQ SCH ×3 (06:19→21:09)
[2020-09-15] MEDS: allopurinoL 300 MG TABLET PO SCH (07:41)
[2020-09-15] MEDS: Folic Acid 1 MG TABLET PO SCH (07:41)
[2020-09-15] MEDS: Gabapentin 300 MG CAPSULE PO SCH ×3 (07:42→21:09)
[2020-09-15] MEDS: Thiamine (B-1) 100 MG TABLET PO SCH (07:42)
[2020-09-15] MEDS: Metoprolol XL (24 HR) Succ 50 MG TAB.ER.24H PO SCH (07:42)
[2020-09-15] MEDS: Furosemide 20 MG TABLET PO SCH (07:42)
[2020-09-15] MEDS: Cyanocobalamin (B-12) 1,000 MCG TABLET PO SCH (07:42)
[2020-09-15] MEDS: Multivit/Ca/Min/Fe/FA 1 TAB TABLET PO SCH (07:42)
[2020-09-15 10:22] LABS: Magnesium 1.5 mg/dL (1.6-2.6)
[2020-09-15] MEDS ORDERED: Magnesium Sulfate 1 GM/102 ML PIGGYBACK IVPB ONE (10:53)
[2020-09-15] MEDS: *HR* HYDROcodone/Acet 10/325 mg TABLET PO PRN ×2 (12:43→21:09)
[2020-09-15] MEDS: Ipratropium/Albuterol Neb 3 ML IH SCH ×2 (17:00→21:22)
[2020-09-15] MEDS: traZODone 50 MG TABLET PO SCH (21:09)
[2020-09-16] MEDS: Ipratropium/Albuterol Neb 3 ML IH SCH ×2 (03:48→11:19)
[2020-09-16] MEDS: *HR* Heparin 5,000 UNIT/ML VIAL SQ SCH (06:01)
[2020-09-16 06:27] LABS: Hematocrit 39.9 % (35.3-44.9); Hemoglobin 12.8 g/dL (11.5-15.4); Mean Corpuscular HGB Conc 32.1 g/dL (31.6-35.5); Mean Corpuscular Hemoglobin 35.1 pg (28.0-33.3); Mean Corpuscular Volume 109.3 fL (83.0-100.0); Mean Platelet Volume 9.8 fL (9.4-12.4); Platelet Count 149 K/mcL (140-400); Red Blood Count 3.65 M/mcL (3.82-4.97); Red Cell Distribution Width 13.7 % (11.5-14.5); White Blood Count 7.1 K/mcL (4.3-11.1)
[2020-09-16 06:49] LABS: BUN/Creatinine Ratio 18 (6-26); Blood Urea Nitrogen 12 mg/dL (8-23); Calcium 9.5 mg/dL (8.6-10.3); Carbon Dioxide 31 mEq/L (23-29); Chloride 100 mEq/L (98-107); Glucose 109 mg/dL (70-105); Osmolality,Calculated 284 (280-300); Phosphorous 2.2 mg/dL (2.7-4.5); Potassium 4.2 mEq/L (3.5-5.1); Sodium 137 mEq/L (136-145); eGFR For African Americans > 60 (> 60); eGFR For Non-African Americans > 60 (> 60)
[2020-09-16 07:28] VITALS: BP 159/74
[2020-09-16 08:18] LABS: Magnesium 1.7 mg/dL (1.6-2.6)
[2020-09-16] MEDS: Gabapentin 300 MG CAPSULE PO SCH (08:51)
[2020-09-16] MEDS: Furosemide 20 MG TABLET PO SCH (08:51)
[2020-09-16] MEDS: Multivit/Ca/Min/Fe/FA 1 TAB TABLET PO SCH (08:51)
[2020-09-16] MEDS: Thiamine (B-1) 100 MG TABLET PO SCH (08:52)
[2020-09-16] MEDS: Metoprolol XL (24 HR) Succ 50 MG TAB.ER.24H PO SCH (08:52)
[2020-09-16] MEDS: Cyanocobalamin (B-12) 1,000 MCG TABLET PO SCH (08:52)
[2020-09-16] MEDS: Folic Acid 1 MG TABLET PO SCH (08:52)
[2020-09-16] MEDS: allopurinoL 300 MG TABLET PO SCH (08:53)
[2020-09-16] MEDS: *HR* HYDROcodone/Acet 10/325 mg TABLET PO PRN (09:24)
== END 2020-09-16 12:10 | disposition home health service (06) ==
LOC: 3BNU
PROVIDERS: ADMIT Internal Medicine; ATTEND Internal Medicine

== ENCOUNTER 2022-03-07 13:17 | Inpatient (IN) ==
[2022-03-07] MEDS ORDERED: Ondansetron 4 MG/2 ML VIAL IVP PRN (16:36)
[2022-03-07] MEDS ORDERED: Naloxone 0.4 MG/ML INJ IVP PRN (16:36)
[2022-03-07] MEDS ORDERED: *HR* LORazepam 2 MG/ML VIAL IVP PRN ×2 (16:39)
[2022-03-07] MEDS ORDERED: Potassium Chloride Elixir 20 MEQ/15 ML UDC PO ONE (16:40)
[2022-03-07] MEDS ORDERED: Perflutren Lipid Microsphere 1.3 ML in 0.9 % Sodium Chloride 8.7 ML IVP PRN (16:41)
[2022-03-07] MEDS: DilTIAZem 50 MG/50 ML IV.SOLN IVC SCH (17:51)
[2022-03-07] MEDS: Ringers Solution, Lactated 1,000 ML IVC SCH (17:53)
[2022-03-07] MEDS: Folic Acid 1 MG TABLET PO SCH (18:07)
[2022-03-07] MEDS: Thiamine (B-1) 200 MG in 0.9 % Sodium Chloride 50 ML IVPB SCH (18:08)
[2022-03-08] MEDS: DilTIAZem 50 MG/50 ML IV.SOLN IVC SCH (02:38)
[2022-03-08] MEDS: Ringers Solution, Lactated 1,000 ML IVC SCH (06:09)
[2022-03-08] MEDS: Acetaminophen 325 MG TABLET PO PRN ×2 (07:59→18:17)
[2022-03-08] MEDS: Thiamine (B-1) 200 MG in 0.9 % Sodium Chloride 50 ML IVPB SCH (07:59)
[2022-03-08] MEDS: Folic Acid 1 MG TABLET PO SCH (07:59)
[2022-03-08 09:25] LABS: Basophils % 0.1 %; Eosinophils % 0.1 %; Hematocrit 39.3 % (35.3-44.9); Immature Granulocytes % 0.5 % (0-4); Lymphocytes # 1.8 K/mcL (0.6-4.6); Lymphocytes % 10.6 %; Mean Corpuscular HGB Conc 33.1 g/dL (31.6-35.5); Mean Corpuscular Hemoglobin 32.3 pg (28.0-33.3); Mean Corpuscular Volume 97.8 fL (83.0-100.0); Mean Platelet Volume 10.8 fL (9.4-12.4); Monocytes # 1.2 K/mcL (0.0-1.3); Monocytes % 6.7 %; Neutrophils # 14.2 K/mcL (1.6-8.9); Platelet Count 219 K/mcL (140-400); Red Blood Count 4.02 M/mcL (3.82-4.97); Red Cell Distribution Width 13.7 % (11.5-14.5); White Blood Count 17.3 K/mcL (4.3-11.1)
[2022-03-08 10:10] LABS: Alanine Aminotransferase 12 Units/L (7-52); Albumin 3.5 g/dL (3.5-5.7); Albumin/Globulin Ratio 1.2 (1.1-2.2); Alkaline Phosphatase 71 Units/L (34-104); Aspartate Amino Transferase 17 Units/L (13-39); BUN/Creatinine Ratio 11 (6-26); Bilirubin,Direct 0.2 mg/dL (0.0-0.2); Bilirubin,Total 0.6 mg/dL (0.3-1.0); Blood Urea Nitrogen 6 mg/dL (8-23); Calcium 8.8 mg/dL (8.6-10.3); Carbon Dioxide 23 mEq/L (23-29); Chloride 103 mEq/L (98-107); Glucose 97 mg/dL (70-105); Magnesium 1.2 mg/dL (1.6-2.6); Osmolality,Calculated 284 (280-300); Phosphorous 2.5 mg/dL (2.7-4.5); Potassium 3.8 mEq/L (3.5-5.1); Sodium 138 mEq/L (136-145); Total Protein 6.5 g/dL (6.4-8.9); eGFR For African Americans > 60 (> 60); eGFR For Non-African Americans > 60 (> 60)
[2022-03-08 10:12] LABS: Chol/HDL Ratio 2.3 (0-4.9); Troponin I 0.03 ng/mL (< 0.04)
[2022-03-08 20:44] LABS: BUN/Creatinine Ratio 10 (6-26); Blood Urea Nitrogen 8 mg/dL (8-23); Calcium 8.8 mg/dL (8.6-10.3); Carbon Dioxide 28 mEq/L (23-29); Chloride 102 mEq/L (98-107); Glucose 126 mg/dL (70-105); Magnesium 1.9 mg/dL (1.6-2.6); Osmolality,Calculated 282 (280-300); Potassium 3.6 mEq/L (3.5-5.1); Sodium 136 mEq/L (136-145); eGFR For African Americans > 60 (> 60); eGFR For Non-African Americans > 60 (> 60)
[2022-03-09] MEDS ORDERED: *HR* Labetalol 20 MG/4 ML SYRINGE IVP PRN (02:45)
[2022-03-09 05:49] LABS: Basophils % 0.1 %; Eosinophils % 0.2 %; Hematocrit 39.4 % (35.3-44.9); Hemoglobin 13.2 g/dL (11.5-15.4); Immature Granulocytes % 0.5 % (0-4); Lymphocytes # 2.3 K/mcL (0.6-4.6); Mean Corpuscular HGB Conc 33.5 g/dL (31.6-35.5); Mean Corpuscular Hemoglobin 32.4 pg (28.0-33.3); Mean Corpuscular Volume 96.8 fL (83.0-100.0); Mean Platelet Volume 10.7 fL (9.4-12.4); Monocytes % 7.9 %; Neutrophils # 9.3 K/mcL (1.6-8.9); Platelet Count 235 K/mcL (140-400); Red Blood Count 4.07 M/mcL (3.82-4.97); Red Cell Distribution Width 13.4 % (11.5-14.5); Segmented Neutrophils % 73.3 %; White Blood Count 12.6 K/mcL (4.3-11.1)
[2022-03-09 06:09] LABS: BUN/Creatinine Ratio 12 (6-26); Blood Urea Nitrogen 7 mg/dL (8-23); Calcium 8.6 mg/dL (8.6-10.3); Carbon Dioxide 31 mEq/L (23-29); Chloride 102 mEq/L (98-107); Glucose 106 mg/dL (70-105); Magnesium 1.6 mg/dL (1.6-2.6); Osmolality,Calculated 284 (280-300); Phosphorous 2.3 mg/dL (2.7-4.5); Potassium 3.1 mEq/L (3.5-5.1); Sodium 138 mEq/L (136-145); eGFR For African Americans > 60 (> 60); eGFR For Non-African Americans > 60 (> 60)
[2022-03-09] MEDS: Acetaminophen 325 MG TABLET PO PRN (06:40)
[2022-03-09] MEDS: Thiamine (B-1) 200 MG in 0.9 % Sodium Chloride 50 ML IVPB SCH (08:36)
[2022-03-09] MEDS: allopurinoL 300 MG TABLET PO SCH (08:44)
[2022-03-09] MEDS: Metoprolol XL (24 HR) Succ 50 MG TAB.ER.24H PO SCH (08:44)
[2022-03-09] MEDS: Folic Acid 1 MG TABLET PO SCH (08:45)
[2022-03-09] MEDS: Tiotropium 10 INH DOSE IH SCH (09:29)
[2022-03-09] MEDS: Budesonide/Formoterol 160/4.5 1 PUFF INH IH SCH ×2 (09:32→20:16)
[2022-03-09] MEDS: Thiamine (B-1) 100 MG TABLET PO SCH (15:27)
[2022-03-10] MEDS: *HR* LORazepam 2 MG/ML VIAL IVP PRN (01:23)
[2022-03-10 04:27] LABS: Eosinophils % 0.2 %; Hematocrit 34.2 % (35.3-44.9); Hemoglobin 11.6 g/dL (11.5-15.4); Immature Granulocytes % 0.5 % (0-4); Lymphocytes # 1.6 K/mcL (0.6-4.6); Lymphocytes % 15.3 %; Mean Corpuscular HGB Conc 33.9 g/dL (31.6-35.5); Mean Corpuscular Hemoglobin 32.7 pg (28.0-33.3); Mean Corpuscular Volume 96.3 fL (83.0-100.0); Mean Platelet Volume 10.5 fL (9.4-12.4); Monocytes # 0.9 K/mcL (0.0-1.3); Monocytes % 9.1 %; Neutrophils # 7.8 K/mcL (1.6-8.9); Platelet Count 221 K/mcL (140-400); Red Blood Count 3.55 M/mcL (3.82-4.97); Red Cell Distribution Width 13.2 % (11.5-14.5); Segmented Neutrophils % 74.9 %; White Blood Count 10.4 K/mcL (4.3-11.1)
[2022-03-10 04:38] LABS: BUN/Creatinine Ratio 14 (6-26); Blood Urea Nitrogen 9 mg/dL (8-23); Calcium 8.2 mg/dL (8.6-10.3); Carbon Dioxide 29 mEq/L (23-29); Chloride 99 mEq/L (98-107); Glucose 108 mg/dL (70-105); Magnesium 1.4 mg/dL (1.6-2.6); Osmolality,Calculated 277 (280-300); Phosphorous 3.2 mg/dL (2.7-4.5); Potassium 3.6 mEq/L (3.5-5.1); Sodium 134 mEq/L (136-145); eGFR For African Americans > 60 (> 60); eGFR For Non-African Americans > 60 (> 60)
[2022-03-10] MEDS ORDERED: *HR* Labetalol 20 MG/4 ML SYRINGE IVP PRN (08:06)
[2022-03-10] MEDS ORDERED: lisinopriL 10 MG TABLET PO SCH (09:00)
[2022-03-10] MEDS: Metoprolol XL (24 HR) Succ 50 MG TAB.ER.24H PO SCH (09:42)
[2022-03-10] MEDS: allopurinoL 300 MG TABLET PO SCH (09:43)
[2022-03-10] MEDS: Thiamine (B-1) 100 MG TABLET PO SCH (09:43)
[2022-03-10] MEDS: Folic Acid 1 MG TABLET PO SCH (09:43)
[2022-03-10] MEDS: *HR* HYDROcodone/Acet 10/325 mg TABLET PO PRN ×2 (10:29→17:04)
[2022-03-10] MEDS: Tiotropium 10 INH DOSE IH SCH (12:06)
[2022-03-10] MEDS: Budesonide/Formoterol 160/4.5 1 PUFF INH IH SCH ×2 (12:06→19:45)
[2022-03-11 04:04] LABS: BUN/Creatinine Ratio 16 (6-26); Blood Urea Nitrogen 10 mg/dL (8-23); Calcium 8.9 mg/dL (8.6-10.3); Carbon Dioxide 28 mEq/L (23-29); Chloride 103 mEq/L (98-107); Glucose 94 mg/dL (70-105); Magnesium 1.9 mg/dL (1.6-2.6); Osmolality,Calculated 283 (280-300); Potassium 4.5 mEq/L (3.5-5.1); Sodium 137 mEq/L (136-145); eGFR For African Americans > 60 (> 60); eGFR For Non-African Americans > 60 (> 60)
[2022-03-11] MEDS: *HR* HYDROcodone/Acet 10/325 mg TABLET PO PRN ×3 (04:41→19:56)
[2022-03-11] MEDS: Budesonide/Formoterol 160/4.5 1 PUFF INH IH SCH ×2 (07:47→20:46)
[2022-03-11] MEDS: Tiotropium 10 INH DOSE IH SCH (07:47)
[2022-03-11] MEDS: Thiamine (B-1) 100 MG TABLET PO SCH (09:35)
[2022-03-11] MEDS: Folic Acid 1 MG TABLET PO SCH (09:35)
[2022-03-11] MEDS: allopurinoL 300 MG TABLET PO SCH (09:35)
[2022-03-11] MEDS: lisinopriL 20 MG TABLET PO SCH ×3 (09:35→09:52)
[2022-03-11] MEDS: Metoprolol XL (24 HR) Succ 50 MG TAB.ER.24H PO SCH (09:35)
[2022-03-12] MEDS: *HR* HYDROcodone/Acet 10/325 mg TABLET PO PRN ×5 (01:47→21:56)
[2022-03-12] MEDS: Tiotropium 10 INH DOSE IH SCH (07:53)
[2022-03-12] MEDS: Budesonide/Formoterol 160/4.5 1 PUFF INH IH SCH ×2 (07:53→20:19)
[2022-03-12] MEDS: allopurinoL 300 MG TABLET PO SCH (08:02)
[2022-03-12] MEDS: lisinopriL 20 MG TABLET PO SCH (08:02)
[2022-03-12] MEDS: Metoprolol XL (24 HR) Succ 50 MG TAB.ER.24H PO SCH (08:02)
[2022-03-12] MEDS: Thiamine (B-1) 100 MG TABLET PO SCH (08:02)
[2022-03-12] MEDS: Folic Acid 1 MG TABLET PO SCH (08:02)
[2022-03-12 23:01] LABS: Bacteria,Urine Few per hpf (None-Few); Bilirubin,Urine Negative (Negative); Blood,Urine Negative (Negative); Clarity,Urine Clear (Clear); Color,Urine Light-Yellow (Yellow); Glucose,Urine (UA) Normal (Normal); Ketones,Urine Negative (Negative); Leukocyte Esterase,Urine Small (Negative); Mucus,Urine Few per lpf (None-Few); Nitrite,Urine Negative (Negative); PH,Urine 6.5 pH Units (5.0-8.0); Protein,Urine Negative (Neg-Trace); RBC,Urine 0-3 per hpf (0-3); Specific Gravity,Urine 1.016 (1.010-1.025); Squamous Epithelial Cell,Urine Few per hpf (None-Few); Urobilinogen,Urine Normal (Normal)
[2022-03-12] MEDS: *HR* LORazepam 2 MG/ML VIAL IVP PRN (23:39)
[2022-03-13] MEDS: *HR* LORazepam 2 MG/ML VIAL IVP PRN (05:20)
[2022-03-13] MEDS: Metoprolol XL (24 HR) Succ 50 MG TAB.ER.24H PO SCH (09:44)
[2022-03-13] MEDS: allopurinoL 300 MG TABLET PO SCH (09:44)
[2022-03-13] MEDS: Folic Acid 1 MG TABLET PO SCH (09:44)
[2022-03-13] MEDS: Thiamine (B-1) 100 MG TABLET PO SCH (09:44)
[2022-03-13] MEDS: lisinopriL 20 MG TABLET PO SCH (09:45)
[2022-03-13] MEDS: Budesonide/Formoterol 160/4.5 1 PUFF INH IH SCH ×2 (11:31→20:17)
[2022-03-13] MEDS: Tiotropium 10 INH DOSE IH SCH (11:31)
[2022-03-13] MEDS: *HR* HYDROcodone/Acet 10/325 mg TABLET PO PRN ×2 (17:33→23:31)
[2022-03-14] MEDS: *HR* HYDROcodone/Acet 10/325 mg TABLET PO PRN ×2 (05:08→09:39)
[2022-03-14] MEDS: Budesonide/Formoterol 160/4.5 1 PUFF INH IH SCH ×2 (07:38→22:39)
[2022-03-14] MEDS: Tiotropium 10 INH DOSE IH SCH (07:38)
[2022-03-14] MEDS: Metoprolol XL (24 HR) Succ 50 MG TAB.ER.24H PO SCH (09:39)
[2022-03-14] MEDS: allopurinoL 300 MG TABLET PO SCH (09:39)
[2022-03-14] MEDS: lisinopriL 20 MG TABLET PO SCH (09:39)
[2022-03-14] MEDS: Folic Acid 1 MG TABLET PO SCH (09:39)
[2022-03-14] MEDS: Thiamine (B-1) 100 MG TABLET PO SCH (09:40)
[2022-03-14] MEDS: *HR* LORazepam 2 MG/ML VIAL IVP PRN ×3 (14:06→22:17)
[2022-03-14] MEDS: *HR* OxyCODONE Immed Rel 5 MG TABLET PO PRN ×2 (15:23→23:09)
[2022-03-14 16:31] LABS: Hematocrit 35.1 % (35.3-44.9); Hemoglobin 11.5 g/dL (11.5-15.4); Mean Corpuscular HGB Conc 32.8 g/dL (31.6-35.5); Mean Corpuscular Hemoglobin 32.1 pg (28.0-33.3); Platelet Count 265 K/mcL (140-400); Red Blood Count 3.58 M/mcL (3.82-4.97); Red Cell Distribution Width 13.1 % (11.5-14.5); White Blood Count 9.4 K/mcL (4.3-11.1)
[2022-03-14 16:50] LABS: Alanine Aminotransferase 27 Units/L (7-52); Albumin 3.3 g/dL (3.5-5.7); Albumin/Globulin Ratio 1.3 (1.1-2.2); Alkaline Phosphatase 81 Units/L (34-104); Aspartate Amino Transferase 22 Units/L (13-39); BUN/Creatinine Ratio 15 (6-26); Bilirubin,Total 0.4 mg/dL (0.3-1.0); Blood Urea Nitrogen 12 mg/dL (8-23); Carbon Dioxide 30 mEq/L (23-29); Chloride 101 mEq/L (98-107); Globulin 2.5 g/dL (2.4-3.5); Glucose 109 mg/dL (70-105); Magnesium 1.4 mg/dL (1.6-2.6); Osmolality,Calculated 280 (280-300); Potassium 4.1 mEq/L (3.5-5.1); Sodium 135 mEq/L (136-145); Total Protein 5.8 g/dL (6.4-8.9); eGFR For African Americans > 60 (> 60); eGFR For Non-African Americans > 60 (> 60)
[2022-03-15] MEDS: lisinopriL 20 MG TABLET PO SCH (08:18)
[2022-03-15] MEDS: *HR* HYDROcodone/Acet 10/325 mg TABLET PO PRN ×4 (08:18→22:43)
[2022-03-15] MEDS: Folic Acid 1 MG TABLET PO SCH (08:18)
[2022-03-15] MEDS: Thiamine (B-1) 100 MG TABLET PO SCH (08:18)
[2022-03-15] MEDS: Metoprolol XL (24 HR) Succ 50 MG TAB.ER.24H PO SCH (08:18)
[2022-03-15] MEDS: allopurinoL 300 MG TABLET PO SCH (08:18)
[2022-03-15] MEDS: Budesonide/Formoterol 160/4.5 1 PUFF INH IH SCH ×2 (10:05→20:23)
[2022-03-15] MEDS: Tiotropium 10 INH DOSE IH SCH (10:07)
[2022-03-15] MEDS: *HR* LORazepam 2 MG/ML VIAL IVP PRN (23:55)
[2022-03-16 02:11] LABS: Basophils % 0.1 %; Eosinophils % 0.2 %; Hematocrit 38.2 % (35.3-44.9); Hemoglobin 12.4 g/dL (11.5-15.4); Immature Granulocytes % 0.3 % (0-4); Lymphocytes # 2.1 K/mcL (0.6-4.6); Lymphocytes % 20.6 %; Mean Corpuscular HGB Conc 32.5 g/dL (31.6-35.5); Mean Corpuscular Hemoglobin 31.7 pg (28.0-33.3); Mean Corpuscular Volume 97.7 fL (83.0-100.0); Mean Platelet Volume 10.6 fL (9.4-12.4); Monocytes # 0.8 K/mcL (0.0-1.3); Monocytes % 7.3 %; Neutrophils # 7.3 K/mcL (1.6-8.9); Platelet Count 275 K/mcL (140-400); Red Blood Count 3.91 M/mcL (3.82-4.97); Red Cell Distribution Width 12.9 % (11.5-14.5); Segmented Neutrophils % 71.5 %; White Blood Count 10.3 K/mcL (4.3-11.1)
[2022-03-16 02:34] LABS: BUN/Creatinine Ratio 16 (6-26); Blood Urea Nitrogen 14 mg/dL (8-23); Calcium 9.8 mg/dL (8.6-10.3); Carbon Dioxide 30 mEq/L (23-29); Chloride 100 mEq/L (98-107); Glucose 89 mg/dL (70-105); Magnesium 1.5 mg/dL (1.6-2.6); Osmolality,Calculated 286 (280-300); Phosphorous 4.2 mg/dL (2.7-4.5); Potassium 4.2 mEq/L (3.5-5.1); Sodium 138 mEq/L (136-145); eGFR For African Americans > 60 (> 60); eGFR For Non-African Americans > 60 (> 60)
[2022-03-16] MEDS: *HR* OxyCODONE Immed Rel 5 MG TABLET PO PRN ×2 (02:50→17:26)
[2022-03-16] MEDS: Folic Acid 1 MG TABLET PO SCH (07:54)
[2022-03-16] MEDS: *HR* HYDROcodone/Acet 10/325 mg TABLET PO PRN ×2 (07:54→12:55)
[2022-03-16] MEDS: Thiamine (B-1) 100 MG TABLET PO SCH (07:54)
[2022-03-16] MEDS: Metoprolol XL (24 HR) Succ 50 MG TAB.ER.24H PO SCH (07:54)
[2022-03-16] MEDS: lisinopriL 20 MG TABLET PO SCH (07:54)
[2022-03-16] MEDS: allopurinoL 300 MG TABLET PO SCH (07:54)
[2022-03-16] MEDS: Tiotropium 10 INH DOSE IH SCH (10:30)
[2022-03-16] MEDS: Budesonide/Formoterol 160/4.5 1 PUFF INH IH SCH ×2 (10:30→20:36)
[2022-03-16 16:08] LABS: Influenza A PCR Negative (Negative); Influenza B PCR Negative (Negative); Resp. Syncytial Virus PCR Negative (Negative)
[2022-03-16 16:09] LABS: SARS-CoV-2 by PCR (In House) Negative (Negative)
[2022-03-16] MEDS: Acetaminophen 325 MG TABLET PO PRN (17:26)
[2022-03-16 17:31] VITALS: BP 122/60; PULSE 86; TEMP 97.7; O2SAT 98
[2022-03-16] MEDS ORDERED: Magnesium Oxide 400 MG TABLET PO SCH (21:00)
== END 2022-03-16 22:00 | DRG 280 ==
LOC: 3NENU → SUATTDRO 15:55
PROVIDERS: ADMIT Student in an Organized Health Care Education/Training Program; ATTEND Internal Medicine

== ENCOUNTER 2022-05-20 16:49 | Inpatient (IN) ==
[2022-05-20] MEDS ORDERED: Naloxone 0.4 MG/ML INJ IVP PRN (19:42)
[2022-05-20] MEDS ORDERED: Ondansetron 4 MG/2 ML VIAL IVP PRN (19:42)
[2022-05-20] MEDS ORDERED: 0.9 % Sodium Chloride 1,000 ML IVC SCH (19:45)
[2022-05-21 02:09] LABS: Hematocrit 29.8 % (35.3-44.9); Hemoglobin 9.4 g/dL (11.5-15.4); Mean Corpuscular HGB Conc 31.5 g/dL (31.6-35.5); Mean Corpuscular Hemoglobin 29.9 pg (28.0-33.3); Mean Corpuscular Volume 94.9 fL (83.0-100.0); Platelet Count 329 K/mcL (140-400); Red Blood Count 3.14 M/mcL (3.82-4.97); Red Cell Distribution Width 13.8 % (11.5-14.5); White Blood Count 16.4 K/mcL (4.3-11.1)
[2022-05-21 02:20] LABS: INR 1.5; Prothrombin Time 16.2 Seconds (9.4-12.1)
[2022-05-21 02:23] LABS: Activated Partial Thrombo Time 32.6 Seconds (26.0-36.0)
[2022-05-21 02:29] LABS: BUN/Creatinine Ratio 26 (6-26); Blood Urea Nitrogen 18 mg/dL (8-23); Calcium 9.6 mg/dL (8.6-10.3); Carbon Dioxide 26 mEq/L (23-29); Chloride 104 mEq/L (98-107); Glucose 82 mg/dL (70-105); Osmolality,Calculated 285 (280-300); Sodium 137 mEq/L (136-145)
[2022-05-21] MEDS ORDERED: Iopamidol - 370 500 ML MLS IVP ONE (05:12)
[2022-05-21] MEDS: Piperacillin/Tazobactam 3.375 GM in 0.9 % Sodium Chloride Mini Bag 100 ML IVPB SCH ×3 (06:51→15:14)
[2022-05-21] MEDS ORDERED: 0.9 % Sodium Chloride 1,000 ML IVC SCH (08:00)
[2022-05-21] MEDS ORDERED: *HR* FentaNYL (PF) 100 MCG/2 ML VIAL IVP ONE (08:20)
[2022-05-21] MEDS ORDERED: *HR* Midazolam HCl 2 MG/2 ML VIAL IVP ONE (08:20)
[2022-05-21] MEDS: DilTIAZem 50 MG/50 ML IV.SOLN IVC SCH (10:26)
[2022-05-21] MEDS: Metoprolol XL (24 HR) Succ 25 MG TAB.ER.24H PO SCH (11:42)
[2022-05-22] MEDS: Piperacillin/Tazobactam 3.375 GM in 0.9 % Sodium Chloride Mini Bag 100 ML IVPB SCH ×4 (00:32→22:20)
[2022-05-22] MEDS: Metoprolol XL (24 HR) Succ 25 MG TAB.ER.24H PO SCH ×3 (01:52→20:23)
[2022-05-22] MEDS: Acetaminophen 325 MG TABLET PO PRN ×3 (04:50→20:23)
[2022-05-22 06:31] LABS: Basophils % 0.2 %; Hematocrit 29.7 % (35.3-44.9); Hemoglobin 9.4 g/dL (11.5-15.4); Immature Granulocytes % 0.9 % (0-4); Lymphocytes # 0.9 K/mcL (0.6-4.6); Lymphocytes % 7.1 %; Mean Corpuscular HGB Conc 31.6 g/dL (31.6-35.5); Mean Corpuscular Hemoglobin 29.6 pg (28.0-33.3); Mean Corpuscular Volume 93.4 fL (83.0-100.0); Mean Platelet Volume 10.6 fL (9.4-12.4); Monocytes # 0.6 K/mcL (0.0-1.3); Monocytes % 4.6 %; Neutrophils # 11.2 K/mcL (1.6-8.9); Platelet Count 298 K/mcL (140-400); Red Blood Count 3.18 M/mcL (3.82-4.97); Red Cell Distribution Width 13.7 % (11.5-14.5); Segmented Neutrophils % 87.2 %; White Blood Count 12.8 K/mcL (4.3-11.1)
[2022-05-22 06:50] LABS: Calcium 8.9 mg/dL (8.6-10.3)
[2022-05-22] MEDS: DilTIAZem 50 MG/50 ML IV.SOLN IVC SCH (14:52)
[2022-05-22] MEDS ORDERED: Ipratropium Neb 0.5 MG NEBULIZER IH ONE (18:45)
[2022-05-22] MEDS ORDERED: *HR* Metoprolol 5 MG/5 ML VIAL IVP ONE (18:46)
[2022-05-23] MEDS: DilTIAZem 50 MG/50 ML IV.SOLN IVC SCH ×5 (02:18→21:07)
[2022-05-23 05:34] LABS: Basophils % 0.2 %; Eosinophils % 0.1 %; Hematocrit 35.7 % (35.3-44.9); Lymphocytes # 0.8 K/mcL (0.6-4.6); Lymphocytes % 7.1 %; Mean Corpuscular HGB Conc 31.7 g/dL (31.6-35.5); Mean Corpuscular Hemoglobin 30.2 pg (28.0-33.3); Mean Corpuscular Volume 95.5 fL (83.0-100.0); Mean Platelet Volume 9.9 fL (9.4-12.4); Monocytes # 0.6 K/mcL (0.0-1.3); Monocytes % 5.2 %; Platelet Count 313 K/mcL (140-400); Red Blood Count 3.74 M/mcL (3.82-4.97); Red Cell Distribution Width 13.9 % (11.5-14.5); Segmented Neutrophils % 86.4 %; White Blood Count 11.6 K/mcL (4.3-11.1)
[2022-05-23] MEDS: Acetaminophen 325 MG TABLET PO PRN ×3 (05:51→21:21)
[2022-05-23 05:54] LABS: Hemoglobin 11.3 g/dL (11.5-15.4)
[2022-05-23] MEDS ORDERED: 0.9 % Sodium Chloride 1,000 ML ONE (06:05)
[2022-05-23 06:10] LABS: Albumin 3.3 g/dL (3.5-5.7); Albumin/Globulin Ratio 0.9 (1.1-2.2); Bilirubin,Total 0.9 mg/dL (0.3-1.0); Calcium 9.6 mg/dL (8.6-10.3); Globulin 3.5 g/dL (2.4-3.5); Potassium 3.6 mEq/L (3.5-5.1); Total Protein 6.8 g/dL (6.4-8.9)
[2022-05-23] MEDS: Piperacillin/Tazobactam 3.375 GM in 0.9 % Sodium Chloride Mini Bag 100 ML IVPB SCH ×2 (07:57→16:08)
[2022-05-23] MEDS: Metoprolol XL (24 HR) Succ 25 MG TAB.ER.24H PO SCH ×2 (07:57→21:21)
[2022-05-23] MEDS: Melatonin 3 MG TABLET PO PRN (21:21)
[2022-05-24] MEDS: Piperacillin/Tazobactam 3.375 GM in 0.9 % Sodium Chloride Mini Bag 100 ML IVPB SCH ×2 (01:06→07:56)
[2022-05-24] MEDS: DilTIAZem 50 MG/50 ML IV.SOLN IVC SCH ×3 (01:17→09:57)
[2022-05-24] MEDS: Metoprolol XL (24 HR) Succ 25 MG TAB.ER.24H PO SCH ×2 (07:55→20:50)
[2022-05-24] MEDS: Acetaminophen 325 MG TABLET PO PRN (08:38)
[2022-05-24] MEDS ORDERED: Bisacodyl 10 MG RECTAL SUPPOSITORY RC ONE (09:00)
[2022-05-24] MEDS ORDERED: *HR* Metoprolol 5 MG/5 ML VIAL IVP PRN (10:13)
[2022-05-24 11:07] LABS: Basophils % 0.1 %; Immature Granulocytes % 0.7 % (0-4); Lymphocytes % 11.9 %; Mean Corpuscular HGB Conc 31.3 g/dL (31.6-35.5); Mean Corpuscular Hemoglobin 29.2 pg (28.0-33.3); Mean Corpuscular Volume 93.4 fL (83.0-100.0); Mean Platelet Volume 10.1 fL (9.4-12.4); Monocytes # 0.6 K/mcL (0.0-1.3); Neutrophils # 6.9 K/mcL (1.6-8.9); Platelet Count 333 K/mcL (140-400); Red Blood Count 3.32 M/mcL (3.82-4.97); Red Cell Distribution Width 13.9 % (11.5-14.5); Segmented Neutrophils % 80.3 %; White Blood Count 8.6 K/mcL (4.3-11.1)
[2022-05-24 11:10] LABS: Hemoglobin 9.7 g/dL (11.5-15.4)
[2022-05-24 11:28] LABS: Alanine Aminotransferase 57 Units/L (7-52); Albumin 2.8 g/dL (3.5-5.7); Albumin/Globulin Ratio 0.9 (1.1-2.2); Alkaline Phosphatase 150 Units/L (34-104); Aspartate Amino Transferase 48 Units/L (13-39); BUN/Creatinine Ratio 22 (6-26); Bilirubin,Total 0.6 mg/dL (0.3-1.0); Blood Urea Nitrogen 15 mg/dL (8-23); Calcium 8.8 mg/dL (8.6-10.3); Carbon Dioxide 28 mEq/L (23-29); Chloride 103 mEq/L (98-107); Globulin 3.2 g/dL (2.4-3.5); Glucose 110 mg/dL (70-105); Osmolality,Calculated 285 (280-300); Potassium 3.5 mEq/L (3.5-5.1); Sodium 137 mEq/L (136-145)
[2022-05-24] MEDS ORDERED: cefTRIAXone 1,000 MG in 0.9 % Sodium Chloride 10 ML IVP SCH (16:00)
[2022-05-24] MEDS: cefTRIAXone 2,000 MG in 0.9 % Sodium Chloride 20 ML IVP SCH (17:13)
[2022-05-24] MEDS: *HR* Heparin 5,000 UNIT/ML VIAL SQ SCH (17:13)
[2022-05-24] MEDS: risperiDONE 0.25 MG TABLET PO SCH (20:50)
[2022-05-24] MEDS: Melatonin 3 MG TABLET PO PRN (20:50)
[2022-05-25] MEDS: Acetaminophen 325 MG TABLET PO PRN ×3 (01:19→21:06)
[2022-05-25] MEDS: *HR* Heparin 5,000 UNIT/ML VIAL SQ SCH ×2 (05:47→17:21)
[2022-05-25 06:14] LABS: Basophils % 0.1 %; Hematocrit 30.8 % (35.3-44.9); Hemoglobin 9.7 g/dL (11.5-15.4); Immature Granulocytes % 0.7 % (0-4); Lymphocytes # 1.7 K/mcL (0.6-4.6); Lymphocytes % 19.5 %; Mean Corpuscular HGB Conc 31.5 g/dL (31.6-35.5); Mean Corpuscular Hemoglobin 29.6 pg (28.0-33.3); Mean Corpuscular Volume 93.9 fL (83.0-100.0); Mean Platelet Volume 10.2 fL (9.4-12.4); Monocytes # 0.7 K/mcL (0.0-1.3); Monocytes % 8.3 %; Neutrophils # 6.3 K/mcL (1.6-8.9); Platelet Count 334 K/mcL (140-400); Red Blood Count 3.28 M/mcL (3.82-4.97); Red Cell Distribution Width 14.1 % (11.5-14.5); Segmented Neutrophils % 71.4 %; White Blood Count 8.8 K/mcL (4.3-11.1)
[2022-05-25 06:39] LABS: Alanine Aminotransferase 51 Units/L (7-52); Albumin 2.6 g/dL (3.5-5.7); Albumin/Globulin Ratio 0.9 (1.1-2.2); Alkaline Phosphatase 136 Units/L (34-104); Aspartate Amino Transferase 36 Units/L (13-39); BUN/Creatinine Ratio 24 (6-26); Bilirubin,Total 0.5 mg/dL (0.3-1.0); Blood Urea Nitrogen 15 mg/dL (8-23); Carbon Dioxide 29 mEq/L (23-29); Chloride 105 mEq/L (98-107); Glucose 101 mg/dL (70-105); Osmolality,Calculated 291 (280-300); Potassium 3.5 mEq/L (3.5-5.1); Sodium 140 mEq/L (136-145); Total Protein 5.6 g/dL (6.4-8.9)
[2022-05-25] MEDS: risperiDONE 0.25 MG TABLET PO SCH ×2 (07:53→21:06)
[2022-05-25] MEDS: Metoprolol XL (24 HR) Succ 25 MG TAB.ER.24H PO SCH ×2 (07:53→21:06)
[2022-05-25] MEDS: polyethylene glycoL 3350 17 GM POWD.PACK PO SCH (12:42)
[2022-05-25] MEDS: cefTRIAXone 2,000 MG in 0.9 % Sodium Chloride 20 ML IVP SCH (17:20)
[2022-05-26] MEDS: Acetaminophen 325 MG TABLET PO PRN ×3 (03:22→19:16)
[2022-05-26] MEDS ORDERED: *HR* Metoprolol 5 MG/5 ML VIAL IVP ONE (03:38)
[2022-05-26] MEDS: *HR* Heparin 5,000 UNIT/ML VIAL SQ SCH ×2 (05:27→18:33)
[2022-05-26] MEDS: risperiDONE 0.25 MG TABLET PO SCH ×2 (08:20→20:34)
[2022-05-26] MEDS: Metoprolol XL (24 HR) Succ 25 MG TAB.ER.24H PO SCH ×2 (08:20→20:34)
[2022-05-26] MEDS: polyethylene glycoL 3350 17 GM POWD.PACK PO SCH (08:21)
[2022-05-26 09:27] LABS: Basophils % 0.2 %; Hematocrit 32.9 % (35.3-44.9); Hemoglobin 10.3 g/dL (11.5-15.4); Immature Granulocytes % 0.9 % (0-4); Lymphocytes # 2.3 K/mcL (0.6-4.6); Lymphocytes % 24.4 %; Mean Corpuscular HGB Conc 31.3 g/dL (31.6-35.5); Mean Corpuscular Hemoglobin 29.5 pg (28.0-33.3); Mean Corpuscular Volume 94.3 fL (83.0-100.0); Mean Platelet Volume 10.2 fL (9.4-12.4); Monocytes # 0.8 K/mcL (0.0-1.3); Monocytes % 8.1 %; Neutrophils # 6.3 K/mcL (1.6-8.9); Platelet Count 362 K/mcL (140-400); Red Blood Count 3.49 M/mcL (3.82-4.97); Red Cell Distribution Width 14.3 % (11.5-14.5); Segmented Neutrophils % 66.4 %; White Blood Count 9.5 K/mcL (4.3-11.1)
[2022-05-26 09:39] LABS: BUN/Creatinine Ratio 21 (6-26); Blood Urea Nitrogen 14 mg/dL (8-23); Calcium 9.4 mg/dL (8.6-10.3); Carbon Dioxide 32 mEq/L (23-29); Chloride 104 mEq/L (98-107); Glucose 98 mg/dL (70-105); Magnesium 1.7 mg/dL (1.6-2.6); Osmolality,Calculated 290 (280-300); Potassium 3.6 mEq/L (3.5-5.1); Sodium 140 mEq/L (136-145)
[2022-05-26] MEDS: cefTRIAXone 2,000 MG in 0.9 % Sodium Chloride 20 ML IVP SCH (16:32)
[2022-05-27] MEDS: Acetaminophen 325 MG TABLET PO PRN ×2 (03:31→16:50)
[2022-05-27] MEDS: *HR* Heparin 5,000 UNIT/ML VIAL SQ SCH ×2 (05:39→18:27)
[2022-05-27] MEDS: risperiDONE 0.25 MG TABLET PO SCH ×2 (08:09→19:52)
[2022-05-27] MEDS: polyethylene glycoL 3350 17 GM POWD.PACK PO SCH (08:09)
[2022-05-27] MEDS: Metoprolol XL (24 HR) Succ 25 MG TAB.ER.24H PO SCH ×2 (08:09→19:52)
[2022-05-27] MEDS: Sennosides 8.6 MG TABLET PO SCH ×2 (10:23→19:51)
[2022-05-27] MEDS ORDERED: Iopamidol - 370 500 ML MLS IVP ONE (15:20)
[2022-05-27] MEDS: cefTRIAXone 2,000 MG in 0.9 % Sodium Chloride 20 ML IVP SCH (16:50)
[2022-05-28] MEDS: *HR* Heparin 5,000 UNIT/ML VIAL SQ SCH ×2 (06:31→17:18)
[2022-05-28] MEDS: Metoprolol XL (24 HR) Succ 25 MG TAB.ER.24H PO SCH ×2 (07:32→20:00)
[2022-05-28] MEDS: polyethylene glycoL 3350 17 GM POWD.PACK PO SCH (07:33)
[2022-05-28] MEDS: risperiDONE 0.25 MG TABLET PO SCH ×2 (07:33→20:00)
[2022-05-28] MEDS: Sennosides 8.6 MG TABLET PO SCH ×2 (07:33→20:01)
[2022-05-28] MEDS: Acetaminophen 325 MG TABLET PO PRN ×2 (10:13→21:24)
[2022-05-28] MEDS ORDERED: *HR* FentaNYL (PF) 100 MCG/2 ML VIAL IVP ONE (14:05)
[2022-05-28] MEDS ORDERED: *HR* FentaNYL (PF) 100 MCG/2 ML VIAL ONE (14:10)
[2022-05-28] MEDS: cefTRIAXone 2,000 MG in 0.9 % Sodium Chloride 20 ML IVP SCH (16:19)
[2022-05-28 19:20] LABS: Basophils % 0.2 %; Eosinophils % 0.1 %; Hematocrit 30.2 % (35.3-44.9); Hemoglobin 9.6 g/dL (11.5-15.4); Immature Granulocytes % 0.8 % (0-4); Lymphocytes # 1.9 K/mcL (0.6-4.6); Lymphocytes % 18.5 %; Mean Corpuscular HGB Conc 31.8 g/dL (31.6-35.5); Mean Corpuscular Hemoglobin 29.9 pg (28.0-33.3); Mean Corpuscular Volume 94.1 fL (83.0-100.0); Mean Platelet Volume 10.4 fL (9.4-12.4); Monocytes # 0.7 K/mcL (0.0-1.3); Monocytes % 6.6 %; Neutrophils # 7.6 K/mcL (1.6-8.9); Platelet Count 358 K/mcL (140-400); Red Blood Count 3.21 M/mcL (3.82-4.97); Red Cell Distribution Width 14.4 % (11.5-14.5); Segmented Neutrophils % 73.8 %; White Blood Count 10.3 K/mcL (4.3-11.1)
[2022-05-28 19:40] LABS: INR 1.3; Prothrombin Time 14.9 Seconds (9.4-12.1)
[2022-05-28 19:42] LABS: BUN/Creatinine Ratio 23 (6-26); Blood Urea Nitrogen 14 mg/dL (8-23); Calcium 9.2 mg/dL (8.6-10.3); Carbon Dioxide 29 mEq/L (23-29); Chloride 102 mEq/L (98-107); Glucose 135 mg/dL (70-105); Osmolality,Calculated 289 (280-300); Potassium 3.7 mEq/L (3.5-5.1); Sodium 138 mEq/L (136-145)
[2022-05-28] MEDS: Melatonin 3 MG TABLET PO PRN (21:21)
[2022-05-29 02:44] LABS: BUN/Creatinine Ratio 24 (6-26); Blood Urea Nitrogen 14 mg/dL (8-23); Calcium 9.2 mg/dL (8.6-10.3); Carbon Dioxide 31 mEq/L (23-29); Chloride 103 mEq/L (98-107); Glucose 101 mg/dL (70-105); Magnesium 1.7 mg/dL (1.6-2.6); Osmolality,Calculated 291 (280-300); Potassium 3.7 mEq/L (3.5-5.1); Sodium 140 mEq/L (136-145)
[2022-05-29 02:50] LABS: Basophils % 0.1 %; Eosinophils % 0.1 %; Hematocrit 30.3 % (35.3-44.9); Hemoglobin 9.5 g/dL (11.5-15.4); Lymphocytes # 2.2 K/mcL (0.6-4.6); Mean Corpuscular HGB Conc 31.4 g/dL (31.6-35.5); Mean Corpuscular Hemoglobin 29.4 pg (28.0-33.3); Mean Corpuscular Volume 93.8 fL (83.0-100.0); Mean Platelet Volume 10.3 fL (9.4-12.4); Monocytes # 0.8 K/mcL (0.0-1.3); Monocytes % 6.9 %; Neutrophils # 7.9 K/mcL (1.6-8.9); Platelet Count 370 K/mcL (140-400); Red Blood Count 3.23 M/mcL (3.82-4.97); Red Cell Distribution Width 14.5 % (11.5-14.5); Segmented Neutrophils % 71.9 %
[2022-05-29] MEDS: *HR* Heparin 5,000 UNIT/ML VIAL SQ SCH ×2 (05:24→17:56)
[2022-05-29] MEDS: Acetaminophen 325 MG TABLET PO PRN ×3 (05:24→19:21)
[2022-05-29] MEDS: Metoprolol XL (24 HR) Succ 25 MG TAB.ER.24H PO SCH ×2 (08:20→21:06)
[2022-05-29] MEDS: Sennosides 8.6 MG TABLET PO SCH ×2 (08:21→21:06)
[2022-05-29] MEDS: polyethylene glycoL 3350 17 GM POWD.PACK PO SCH (08:21)
[2022-05-29] MEDS: risperiDONE 0.25 MG TABLET PO SCH ×2 (09:07→21:06)
[2022-05-29] MEDS: cefTRIAXone 2,000 MG in 0.9 % Sodium Chloride 20 ML IVP SCH (15:19)
[2022-05-29] MEDS: Melatonin 3 MG TABLET PO PRN (21:06)
[2022-05-30] MEDS: Acetaminophen 325 MG TABLET PO PRN ×2 (03:02→12:23)
[2022-05-30 05:19] LABS: Basophils % 0.2 %; Eosinophils % 0.1 %; Hematocrit 29.3 % (35.3-44.9); Hemoglobin 9.3 g/dL (11.5-15.4); Immature Granulocytes % 0.8 % (0-4); Lymphocytes # 2.1 K/mcL (0.6-4.6); Lymphocytes % 19.9 %; Mean Corpuscular HGB Conc 31.7 g/dL (31.6-35.5); Mean Corpuscular Volume 94.5 fL (83.0-100.0); Mean Platelet Volume 10.2 fL (9.4-12.4); Monocytes # 0.9 K/mcL (0.0-1.3); Monocytes % 8.2 %; Neutrophils # 7.4 K/mcL (1.6-8.9); Platelet Count 393 K/mcL (140-400); Red Cell Distribution Width 14.6 % (11.5-14.5); Segmented Neutrophils % 70.8 %; White Blood Count 10.4 K/mcL (4.3-11.1)
[2022-05-30 05:36] LABS: BUN/Creatinine Ratio 20 (6-26); Blood Urea Nitrogen 12 mg/dL (8-23); Calcium 9.3 mg/dL (8.6-10.3); Carbon Dioxide 32 mEq/L (23-29); Chloride 102 mEq/L (98-107); Glucose 93 mg/dL (70-105); Magnesium 1.6 mg/dL (1.6-2.6); Osmolality,Calculated 289 (280-300); Potassium 3.8 mEq/L (3.5-5.1); Sodium 140 mEq/L (136-145)
[2022-05-30] MEDS: *HR* Heparin 5,000 UNIT/ML VIAL SQ SCH ×2 (06:02→17:58)
[2022-05-30] MEDS ORDERED: Tiotropium 10 INH DOSE IH ONE (07:47)
[2022-05-30] MEDS: Metoprolol XL (24 HR) Succ 25 MG TAB.ER.24H PO SCH ×2 (07:56→19:25)
[2022-05-30] MEDS: Sennosides 8.6 MG TABLET PO SCH ×2 (07:56→19:25)
[2022-05-30] MEDS: risperiDONE 0.25 MG TABLET PO SCH ×2 (07:56→19:24)
[2022-05-30] MEDS: polyethylene glycoL 3350 17 GM POWD.PACK PO SCH (07:57)
[2022-05-30] MEDS: Tiotropium 10 INH DOSE IH SCH (07:58)
[2022-05-30] MEDS ORDERED: Magnesium Oxide 400 MG TABLET PO ONE (13:19)
[2022-05-30] MEDS: cefTRIAXone 2,000 MG in 0.9 % Sodium Chloride 20 ML IVP SCH (15:59)
[2022-05-30] MEDS: Melatonin 3 MG TABLET PO PRN (21:31)
[2022-05-31] MEDS: Acetaminophen 325 MG TABLET PO PRN ×2 (03:45→13:39)
[2022-05-31 04:46] LABS: Influenza A PCR Negative (Negative); Influenza B PCR Negative (Negative); Resp. Syncytial Virus PCR Negative (Negative)
[2022-05-31 04:47] LABS: SARS-CoV-2 by PCR (In House) Negative (Negative)
[2022-05-31] MEDS: *HR* Heparin 5,000 UNIT/ML VIAL SQ SCH ×2 (05:09→18:32)
[2022-05-31] MEDS: Tiotropium 10 INH DOSE IH SCH (08:13)
[2022-05-31] MEDS: Metoprolol XL (24 HR) Succ 25 MG TAB.ER.24H PO SCH ×2 (08:38→19:52)
[2022-05-31] MEDS: polyethylene glycoL 3350 17 GM POWD.PACK PO SCH (08:38)
[2022-05-31] MEDS: risperiDONE 0.25 MG TABLET PO SCH ×2 (08:38→19:52)
[2022-05-31] MEDS: Sennosides 8.6 MG TABLET PO SCH ×2 (08:39→19:55)
[2022-05-31] MEDS: cefTRIAXone 2,000 MG in 0.9 % Sodium Chloride 20 ML IVP SCH (16:03)
[2022-05-31] MEDS: Melatonin 3 MG TABLET PO PRN (21:22)
[2022-06-01 04:28] LABS: Basophils % 0.3 %; Eosinophils % 0.1 %; Hematocrit 28.7 % (35.3-44.9); Hemoglobin 9.1 g/dL (11.5-15.4); Immature Granulocytes % 0.8 % (0-4); Lymphocytes % 26.4 %; Mean Corpuscular HGB Conc 31.7 g/dL (31.6-35.5); Mean Corpuscular Hemoglobin 29.9 pg (28.0-33.3); Mean Corpuscular Volume 94.4 fL (83.0-100.0); Mean Platelet Volume 10.1 fL (9.4-12.4); Monocytes # 0.7 K/mcL (0.0-1.3); Monocytes % 9.5 %; Neutrophils # 4.9 K/mcL (1.6-8.9); Platelet Count 378 K/mcL (140-400); Red Blood Count 3.04 M/mcL (3.82-4.97); Segmented Neutrophils % 62.9 %; White Blood Count 7.7 K/mcL (4.3-11.1)
[2022-06-01 04:42] LABS: BUN/Creatinine Ratio 19 (6-26); Blood Urea Nitrogen 12 mg/dL (8-23); Calcium 9.4 mg/dL (8.6-10.3); Carbon Dioxide 34 mEq/L (23-29); Chloride 101 mEq/L (98-107); Glucose 87 mg/dL (70-105); Magnesium 1.7 mg/dL (1.6-2.6); Osmolality,Calculated 289 (280-300); Sodium 140 mEq/L (136-145)
[2022-06-01] MEDS: *HR* Heparin 5,000 UNIT/ML VIAL SQ SCH (05:05)
[2022-06-01 07:30] VITALS: BP 159/79; PULSE 72; TEMP 97.7
[2022-06-01] MEDS: Tiotropium 10 INH DOSE IH SCH (07:56)
[2022-06-01] MEDS: risperiDONE 0.25 MG TABLET PO SCH (08:37)
[2022-06-01] MEDS: polyethylene glycoL 3350 17 GM POWD.PACK PO SCH (08:37)
[2022-06-01] MEDS: Metoprolol XL (24 HR) Succ 25 MG TAB.ER.24H PO SCH (08:37)
[2022-06-01] MEDS: Sennosides 8.6 MG TABLET PO SCH (08:37)
[2022-06-01] MEDS: Acetaminophen 325 MG TABLET PO PRN (09:02)
[2022-06-01 09:13] VITALS: O2SAT 97
[2022-06-01 12:07] LABS: Influenza A PCR Negative (Negative); Influenza B PCR Negative (Negative); Resp. Syncytial Virus PCR Negative (Negative)
[2022-06-01 12:17] LABS: SARS-CoV-2 by PCR (In House) Negative (Negative)
== END 2022-06-01 13:49 | DRG 872 ==
LOC: 3ANU → SUATTDRO 05-22 15:54 → 2NENU 05-23 10:22
PROVIDERS: ADMIT General Practice; ATTEND Internal Medicine
PROC: IRDRAIN (2022-05-21 12:00)